=== PATIENT | female | born 1955 | race Hispanic/Latino ===

== ENCOUNTER 2018-11-21 11:24 | Inpatient (IN) | payer OTHER ==
[2018-11-21] VITALS (36 sets, daily range): BP systolic 85–165; BP diastolic 25–111
[~2018-11-21] VITALS: Ht 162.6 cm; Wt 253.7 kg
--- NOTE | 2018-11-21 11:39 | NUR ---
ARRIVAL PT ARRIVED VIA WHEELCHAIR TO ER 2 C/O FATIGUE X 6 DAYS. PT STATES THAT SHE IS DIABETIC, HAS NOT TAKEN HER INSULIN IN 3 WEEKS OR CHECKED HER BLOOD SUGAR IN 2 WEEKS. PT STATES "I USED TO HAVE INSULIN BUT I DON'T HAVE INSURANCE ANYMORE SO I JUST GET SAMPLES FROM MY DOCTOR. THEY HAVE A SAMPLE FOR ME, BUT I HAVEN'T HAD A CHANCE TO GO AND GET IT". EDP NOTIFIED OF PT ARRIVAL.
[2018-11-21] MEDS ORDERED: HUMULIN R SQ STA (12:01)
[2018-11-21] MEDS ORDERED: NS 1000ML 1,000 ML ONE ×2 (12:06→13:59)
--- NOTE | 2018-11-21 12:09 | PCM.EKG ---
[facility] Test Date: 2018-11-21 Test Time: 12:07:37 Pat Name: SONDRA BABB Department: Room: Gender: F Kitchen Steward: CATALINA : 1955 Requested By: INDRA JENSEN Order Number: [id number] Reading MD: Measurements Intervals [place] Rate: 61 P: 34 WI: 168 QRS: 24 QRSD: 88 T: -7 QT: 468 QTc: 471 Interpretive Statements Normal sinus rhythm Low voltage QRS Nonspecific T wave abnormality Prolonged QT Abnormal ECG No previous ECG available for comparison Please click the below link to view image of tracing.
--- NOTE | 2018-11-21 12:15 | ER.PDOC ---
General Chief Complaint: General Complaint Stated Complaint: FATIGUE,DIZZINESS/ NON COMPLIANCE WITH DIABETIC MEDS TRAVEL OUT OF US: No Time seen by MD: 12:33 Source: patient Exam Limitations: no limitations History of Present Illness Timing/Duration: 1 week Modifying Factors: improves with movement, improves with rest Associated Symptoms: syncope, weakness Allergies: Coded Allergies: No Known Allergies (Unverified , 01/12/17) Past Medical History Medical History: cardiac problems, diabetes, hypertension Surgical History: tonsillectomy, other Social History Smoking: non-smoker Alcohol Use: none Drug Use: none Reviewed Nursing Reviewed: Vital Signs, Abn. 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 (11/21/18 11:58) Helicobacter Pylori (11/21/18 11:58) D-Dimer (11/21/18 11:58) Xr Chest 1v (11/21/18 11:58) Ekg-Routine (11/21/18 11:58) Venous Blood Gas (11/21/18 11:58) Acetone,Serum (Ml) (11/21/18 11:58) 0.9 % Sodium Chloride (Ns 1000ml) (11/21/18 12:30) Insulin Regular, Human (Humulin R) (11/21/18 12:30) Insulin Regular, Human (Humulin R) (11/21/18 12:01) 0.9 % Sodium Chloride (Ns 1000ml) (11/21/18 12:06) Insulin Regular, Human (Humulin R) (11/21/18 12:23) Insulin Regular, Human (Humulin R) (11/21/18 12:25) 0.9 % Sodium Chloride (Ns 1000ml) (11/21/18 13:59) Insulin Regular, Human (Humulin R) (11/21/18 13:59) Insulin Regular, Human (Humulin R) (11/21/18 14:01) Glucose (11/21/18 14:12) Urinalysis (11/21/18 14:48) Vital Signs Date Time Temp Pulse Resp B/P (MAP) Pulse Ox O2 Delivery O2 Flow Rate FiO2 11/21/18 12:00 97.9 64 17 128/65 (86) 97 Room Air 97.9 11/21/18 11:54 97.9 64 17 97.9 11/21/18 11:54 97.9 64 17 97 Room Air 97.9 Administered Medications Medications (Trade) Dose Ordered Sig/Shannon Route PRN Reason Start Time Stop Time Status Last Admin Dose Admin Insulin Human Regular (Humulin R) 6 unit OT ONCE IV 11/21/18 12:30 11/21/18 12:31 DC 11/21/18 12:30 6 UNIT Insulin Human Regular (Humulin R) 10 unit OT STAT SQ 11/21/18 12:01 11/21/18 12:03 DC 11/21/18 12:30 10 UNIT Sodium Chloride 1,000 ml @ 0 mls/hr Q0M ONCE IV 11/21/18 12:30 11/21/18 12:31 DC 11/21/18 12:23 1,000 MLS/HR Laboratory Tests Test 11/21/18 12:15 11/21/18 14:13 White Blood Count 13.1 10^3/uL (4.5-11.0) H Red Blood Count 4.29 10^6/uL (4.00-5.20) Hemoglobin 12.4 g/dL (12.0-15.0) Hematocrit 39.5 % (36.0-46.0) Mean Corpuscular Volume 92.1 fL (78-100) Mean Corpuscular Hemoglobin 28.9 pg (26-34) Mean Corpuscular Hemoglobin Concent 31.4 g/dL (33-37) L Red Cell Distribution Width 14.7 % (11.5-14.5) H Platelet Count 298 10^3/uL (150-400) Mean Platelet Volume 10.8 fL (7.8-11.0) Neutrophils (%) (Auto) 86.6 % (41.0-85.0) H Lymphocytes (%) (Auto) 9.3 % (24.0-44.0) L Monocytes (%) (Auto) 3.5 % (5.0-12.0) L Neutrophils # (Auto) 11.3 10^3/uL (1.8-7.7) H Lymphocytes # (Auto) 1.2 10^3/uL (1.0-4.8) Monocytes # (Auto) 0.5 10^3/uL (0.3-0.8) Absolute Immature Granulocyte (auto 0.02 10^3 u/L (0-2) Eosinophils % 0.2 % (0.0-5.0) Basophils % 0.2 % (0.0-0.2) Basophils # 0.0 10^3/uL (0.0-0.1) Eosinophil Count 0.0 10^3/uL (0.0-0.2) Prothrombin Time 9.7 SEC (9.8-11.9) L Prothrombin Time INR (Non-Therap) 1.0 PTT 23.7 SEC (24.67-30.72) D-Dimer 0.74 mg/L (0.19-0.49) *H Sodium Level 120 mmol/L (132-145) #*L Potassium Level 5.1 mmol/L (3.6-5.2) Chloride Level 83.0 mmol/L (96-109) *L Carbon Dioxide Level 25.2 mmol/L (20.0-32) Anion Gap 16.9 Blood Urea Nitrogen 46 mg/dL (7-18) H Creatinine 2.13 mg/dL (0.59-1.40) *H Estimated GFR () 28.3 (>/=60) BUN/Creatinine Ratio 21.0 Glucose Level 1151 mg/dL (70-110) *H 881 mg/dL (70-110) *H Calcium Level 9.8 mg/dL (8.4-10.5) Total Bilirubin 0.4 mg/dL (0.2-1.0) Aspartate Amino Transferase (AST) 15 U/L (0-35) Alanine Aminotransferase (ALT) 21 U/L (12-78) Alkaline Phosphatase 274 U/L (50-136) H Total Creatine Kinase 157 U/L (26-192) Troponin I 0.13 ng/mL (0.00-0.05) H Pro-B-Type Natriuretic Peptide 155 pg/mL (0-125) H Total Protein 8.4 g/dL (6.4-8.2) H Albumin 3.6 g/dL (3.4-5.0) Globulin 4.8 Acetone, Semi-Quantitative NEGATIVE Percent Immature Gran (Cell Imm) 0.20 % (0.00-0.50) Helicobacter pylori Screen NEGATIVE (NEGATIVE) EKG/XRAY/CT/US EKG: NSR, nonspecific ST T wave chg Consult/PCP Time Consult/PCP Called: 15:11 Consult/PCP: DR HUTSON Departure Time of Disposition: 15:33 Disposition: 09 ADMITTED INPATIENT Impression: Primary Impression: Hyperosmolality syndrome Condition: Improved Referrals: PEDRO EDMOND BRAZER FURNACE (PCP) PRIMARY CARE PROVIDER Duration or Time Spent with Pa: 2 HRS Critical Care Note Total Time (mins): 30 INDRA JENSEN MD Nov 21, 2018 12:15
[2018-11-21 12:21] LABS: BASOPHIL % 0.2 % (0.0-0.2); EOSINOPHIL % 0.2 % (0.0-5.0); HEMOGLOBIN 12.4 g/dL (12.0-15.0); LYMPHOCYTES # 1.2 10^3/uL (1.0-4.8); LYMPHOCYTES % 9.3 % (24.0-44.0); MEAN CELL HGB 28.9 pg (26-34); MEAN CELL HGB CONCENTRATION 31.4 g/dL (33-37); MEAN CORP VOLUME 92.1 fL (78-100); MEAN PLATELET VOLUME 10.8 fL (7.8-11.0); MONOCYTES # 0.5 10^3/uL (0.3-0.8); MONOCYTES % 3.5 % (5.0-12.0); NEUTROPHIL # 11.3 10^3/uL (1.8-7.7); NEUTROPHILS % 86.6 % (41.0-85.0); RED CELL DISTRIBUTION WIDTH 14.7 % (11.5-14.5); WHITE BLOOD CELL 13.1 10^3/uL (4.5-11.0)
[2018-11-21] MEDS ORDERED: HUMULIN R ONE ×4 (12:23→14:01)
[2018-11-21] MEDS ORDERED: NS 1000ML 1,000 ML IV ONE ×2 (12:30→15:30)
[2018-11-21] MEDS ORDERED: HUMULIN R IV ONE (12:30)
[2018-11-21 12:45] LABS: CALCIUM 9.8 mg/dL (8.4-10.5); CARBON DIOXIDE 25.2 mmol/L (20.0-32)
--- NOTE | 2018-11-21 12:45 | DIREP ---
PROCEDURE:CHEST 1 VIEW COMPARISON:None. INDICATIONS:HYPERGLYCEMIA, WEAK, DYSPNEA FINDINGS: LUNGS/PLEURA:No significant pulmonary parenchymal abnormalities. No effusions. A shallow inspiration is noted. VASCULATURE:Normal. Unremarkable pulmonary vasculature. CARDIAC:Normal. No cardiac silhouette abnormality or cardiomegaly. MEDIASTINUM:Normal. No visible mass or adenopathy. BONES:Normal. No fracture or visible bony lesion. OTHER:Multiple monitor leads overlie the chest. CONCLUSION:Shallow inspiration without acute cardiopulmonary disease. Dictated by: Minor Rashid M.D. on 11/21/2018 at 12:44 PM
[2018-11-21] MEDS: HUMULIN R IV ONE ×2 (14:06→15:38)
[2018-11-21] MEDS ORDERED: HUMULIN R IV STA (15:15)
[2018-11-21] MEDS ORDERED: NS 100ML 100 ML IV ONE ×2 (15:23→21:00)
[2018-11-21] MEDS ORDERED: NS 1000ML/KCL 20MEQ 1,000 ML IV SCH (15:30)
[2018-11-21] MEDS ORDERED: HUMULIN R IV SCH (15:30)
[2018-11-21] MEDS ORDERED: HUMULIN R SQ ONE (15:30)
[2018-11-21] MEDS ORDERED: DUONEB 0.5 MG-3 MG/3 ML SOLN IH ONE (15:59)
[2018-11-21] MEDS ORDERED: DECADRON ONE (15:59)
--- NOTE | 2018-11-21 16:22 | NUR ---
ICU PT TO ICU VIA STRETCHER WITH TRANSPORT MONITOR. REPORT TO KALIA LOPEZ.
[2018-11-21 16:56] LABS: BILIRUBIN,URINE NEGATIVE (NEGATIVE); UROBILINOGEN,URINE NORMAL (NEGATIVE)
[2018-11-21 17:26] LABS: APPEARANCE,URINE CLOUDY (CLEAR); UA COLOR YELLOW (YELLOW)
[2018-11-21 17:27] LABS: YEAST,URINE FEW
--- NOTE | 2018-11-21 17:30 | NUR ---
DR. HUTSON AT BEDSIDE NEW ORDERS GIVEN: USE COLUMN 3 OF ICU INSULIN DRIP ORDERS. START PATIENT ON NS @ 125ML/HR. ONCE BLOOD SUGAR IS LESS THAN 250, ADD D5W. IF POTASSIUM DROPS BELOW 3.5 GIVE 40KCL, IF BELOW 3.0 GIVE 60KCL. ORDER Q4 BMP X4. START PATIENT ON LOVENOX 40MG, PROTONIX, 40MG, ROCEPHINE 1GM, DIET 1800 ADA, CHEST XRAY IN THE AM, SWAB PATIENT FOR INFLUENZA A&B. ORDER PLAIN FILM ON R RADIUS AND ULNA. RBVO.
[2018-11-21] MEDS ORDERED: NS 1000ML 1,000 ML IV SCH (18:00)
[2018-11-21] MEDS ORDERED: PIOG30TA27 PO (18:18)
[2018-11-21] MEDS ORDERED: GLIM2TAB2 PO (18:18)
[2018-11-21] MEDS ORDERED: PRAV10TA2 PO (18:18)
[2018-11-21] MEDS ORDERED: LISI-410 PO (18:21)
[2018-11-21 18:38] LABS: CALCIUM 9.5 mg/dL (8.4-10.5)
[2018-11-21] MEDS ORDERED: MELO15TA24 PO (18:42)
[2018-11-21] MEDS ORDERED: FURO-81 PO (18:42)
[2018-11-21] MEDS ORDERED: ALLO300T PO (18:42)
[2018-11-21] MEDS ORDERED: METO100T7 PO (18:42)
[2018-11-21] MEDS ORDERED: ASPI-655 PO (18:42)
[2018-11-21] MEDS ORDERED: ISOS30TA4 PO (18:42)
[2018-11-21] MEDS ORDERED: HYDR25TA9 PO (18:42)
[2018-11-21] MEDS ORDERED: GABA300C10 PO (18:42)
--- NOTE | 2018-11-21 18:48 | DIREP ---
PROCEDURE:XRAY FOREARM 2 VWS-RT COMPARISON:None. INDICATIONS:SWELLING AND MASS FINDINGS: BONES:Normal. JOINTS:Normal. SOFT TISSUES:Normal. OTHER:Intravenous catheter is present superficially. CONCLUSION:No abnormalities in the right forearm. Dictated by: Fortino Eubanks M.D. on 11/21/2018 at 06:47 PM
[2018-11-21] MEDS ORDERED: ROCEPHIN 1,000 MG in NS 100ML 100 ML IV SCH (20:00)
[2018-11-21] MEDS ORDERED: ROCEPHIN ONE (21:00)
[2018-11-21] MEDS: PROTONIX PO SCH (21:10)
[2018-11-21] MEDS: NEURONTIN PO SCH (21:11)
[2018-11-21] MEDS: LOVENOX SQ SCH (21:12)
[2018-11-21] MEDS ORDERED: D5W 1000ML 1,000 ML ONE (22:07)
[2018-11-21 22:20] LABS: CALCIUM 9.7 mg/dL (8.4-10.5); CARBON DIOXIDE 27.4 mmol/L (20.0-32)
[2018-11-21] MEDS ORDERED: D5W 1000ML 1,000 ML IV SCH (23:00)
[2018-11-21] MEDS ORDERED: D5NS 1,000 ML IV SCH (23:00)
[2018-11-22] VITALS (53 sets, daily range): BP systolic 74–158; BP diastolic 33–87
[2018-11-22 03:17] LABS: CARBON DIOXIDE 28.2 mmol/L (20.0-32)
[2018-11-22] MEDS ORDERED: NS 100ML 100 ML IV ONE ×2 (05:20→09:14)
[2018-11-22] MEDS ORDERED: NOVOLIN R IV SCH (06:00)
[2018-11-22] MEDS ORDERED: NS IV SCH (06:00)
[2018-11-22 06:16] LABS: CALCIUM 8.9 mg/dL (8.4-10.5); CARBON DIOXIDE 26.4 mmol/L (20.0-32)
[2018-11-22] MEDS ORDERED: D5NS 1,000 ML ONE (06:54)
--- NOTE | 2018-11-22 07:00 | NUR ---
DR. HUTSON AT BEDSIDE NEW ORDERS GIVEN: GIVE PATIENT 30UNITS OF LANTUS AND STOP INSULIN DRIP. CHANGE ACCU CHECKS TO ACHS. ADD 20KCL TO FLUIDS. RBVO.
[2018-11-22] MEDS ORDERED: D5NS 1000ML/KCL 20MEQ 1,000 ML ONE (07:01)
--- NOTE | 2018-11-22 07:20 | NUR ---
INSULIN DRIP STOPPED PER DR. HUTSON. FLUIDS CHANGED FROM D5NS WITH 20KCL TO NS WITH KCL.
[2018-11-22] MEDS ORDERED: D5NS 1000ML/KCL 20MEQ 1,000 ML IV SCH (07:30)
[2018-11-22] MEDS ORDERED: LANTUS SQ ONE (07:30)
[2018-11-22] MEDS: NS 1000ML/KCL 20MEQ 1,000 ML IV SCH ×2 (07:43→17:13)
--- NOTE | 2018-11-22 08:40 | PRM.PN ---
Subjective Subjective Date: Nov 22, 2018 Time: 08:32 Subjective Feeling a little better today. Didn't get great sleep overnight. Nausea much improved, feels hungry now. Complains of weakness and difficulty getting up. No other overnight events. VTE VTE Risk Total Score: >5 VTE Risk Score VTE Risk: Score 0-1 = Low Risk (Aggressive mobilization; early ambulation; no VTE prophylaxis required) Score 2: Moderate Risk (Intermittent/Pneumatic Compression Device OR Lovenox/Heparin/Coumadin) Score 3-4: High Risk (Intermittent/Pneumatic Compression Device AND Lovenox/Heparin/Coumadin) Score > or =5: Highest Risk (Intermittent/Pneumatic Compression Device AND Lovenox/Heparin/Coumadin) Review of Systems Constitutional: Weakness; No: Fever, Chills, Sweats, Malaise, Other Respiratory: No: Cough, Dry, Shortness of breath, SOB with excertion, Wheezing , Hemoptysis, Pleuritic Pain, Sputum, Wheezing, Other Cardiovascular: No: Chest Pain, Palpitations, Orthopnea, Paroxysmal Noc. Dyspnea, Edema, Lt Headedness, Other Gastrointestinal: No: Nausea, Vomiting, Abdominal Pain, Diarrhea, Constipation , Melena, Hematochezia, Other Genitourinary: No Dysuria, No Frequency, No Incontinence, No Hematuria, No Retention, No Other Musculoskeletal: No: other, neck pain, shoulder pain, arm pain, back pain, hand pain, leg pain, foot pain Neurological: No: Weakness, Numbness, Incoordination, Change in speech, Confusion, Seizures, Other Allergies: Coded Allergies: No Known Allergies (Unverified , 01/12/17) Scheduled Aspirin (Aspirin Ec), 1 TAB PO DAILY, (Reported) Furosemide (Lasix), 1 TAB PO DAILY, (Reported) Gabapentin (Gabapentin), 1 CAP PO BID, (Reported) Glimepiride (Glimepiride), 1 TAB PO DAILY, (Reported) Hydrochlorothiazide (Hydrochlorothiazide), 1 TAB PO DAILY, (Reported) Isosorbide Mononitrate (Isosorbide Mononitrate Er), 1 TAB PO DAILY, (Reported) Lisinopril (Lisinopril), 1 TAB PO BID, (Reported) Meloxicam (Meloxicam), 1 TAB PO DAILY, (Reported) Metoprolol Tartrate (Lopresser 100MG), 1 TAB PO BID, (Reported) Pravastatin Sodium (Pravastatin Sodium), 1 TAB PO DAILY, (Reported) Discontinued Medications Allopurinol (Allopurinol), 1 TAB PO DAILY, (Reported) Discontinued Reason: HOLD Pioglitazone Hcl (Actos), 30 MG PO DAILY24, (Reported) Discontinued Reason: HOLD Objective Vitals and I/O Vital Sign - Last 24 Hours 11/21/18 11/21/18 11/21/18 11/21/18 11:54 11:54 12:00 12:30 Temp 97.9 97.9 97.9 97.9 97.9 97.9 Pulse 64 64 64 63 Resp 17 17 17 B/P (MAP) 128/65 (86) 116/46 (69) Pulse Ox 97 97 94 O2 Delivery Room Air Room Air 11/21/18 11/21/18 11/21/18 11/21/18 13:00 13:30 14:00 14:30 Pulse 61 63 65 64 B/P (MAP) 116/53 (74) 107/58 (74) 135/76 (95) 111/54 (73) Pulse Ox 92 100 96 98 11/21/18 11/21/18 11/21/18 11/21/18 15:00 15:30 16:00 17:13 Temp 97.9 97.9 Pulse 61 63 64 67 B/P (MAP) 120/46 (70) 109/63 (78) 107/50 (69) 106/58 (74) Pulse Ox 96 98 98 99 11/21/18 11/21/18 11/21/18 11/21/18 17:15 17:28 17:43 17:58 Pulse 65 61 64 Resp 21 16 29 B/P (MAP) 113/55 (74) 104/53 (70) 120/56 (77) Pulse Ox 99 O2 Delivery Room Air 11/21/18 11/21/18 11/21/18 11/21/18 18:13 18:28 18:47 19:00 Pulse 64 63 68 72 Resp 21 11 15 18 B/P (MAP) 104/58 (73) 85/35 (52) 136/52 (80) Pulse Ox 94 97 11/21/18 11/21/18 11/21/18 11/21/18 19:02 19:15 19:17 19:32 Pulse 70 68 72 Resp 43 23 15 B/P (MAP) 106/42 (63) 91/42 (58) 120/62 (81) Pulse Ox 97 O2 Delivery Room Air 11/21/18 11/21/18 11/21/18 11/21/18 19:47 20:00 20:03 20:18 Pulse 70 70 67 67 Resp 14 13 14 B/P (MAP) 95/54 (68) 105/48 (67) 105/53 (70) Pulse Ox 98 97 94 11/21/18 11/21/18 11/21/18 11/21/18 20:32 20:48 21:00 21:02 Pulse 70 69 67 66 Resp 18 16 14 14 B/P (MAP) 121/62 (81) 93/32 (52) 103/58 (73) Pulse Ox 94 93 92 11/21/18 11/21/18 11/21/18 11/21/18 21:18 21:32 21:47 22:00 Pulse 70 69 76 69 Resp 18 44 23 16 B/P (MAP) 165/111 (129) 96/52 (67) 119/48 (71) Pulse Ox 95 93 96 11/21/18 11/21/18 11/21/18 11/21/18 22:02 22:17 22:32 22:48 Pulse 69 69 67 71 Resp 17 13 19 B/P (MAP) 87/25 (45) 121/50 (73) 113/63 (80) 118/78 (91) Pulse Ox 94 97 11/21/18 11/21/18 11/21/18 11/21/18 23:00 23:02 23:17 23:32 Pulse 66 67 66 65 Resp 14 14 15 14 B/P (MAP) 119/67 (84) 108/59 (75) 102/57 (72) Pulse Ox 96 93 11/21/18 11/22/18 11/22/18 11/22/18 23:47 00:00 00:00 00:02 Pulse 69 66 66 Resp 21 14 15 B/P (MAP) 118/63 (81) 112/62 (79) Pulse Ox 92 92 O2 Delivery Room Air 11/22/18 11/22/18 11/22/18 11/22/18 00:17 00:32 00:48 01:00 Pulse 68 71 67 70 Resp 15 16 14 14 B/P (MAP) 90/41 (57) 87/44 (58) 128/67 (87) Pulse Ox 91 91 93 93 11/22/18/01/05/01/0511/22/18 01:02 01:17 01:32 01:47 Pulse 70 66 67 65 Resp 14 14 15 14 B/P (MAP) 114/59 (77) 100/61 (74) 110/60 (77) 88/47 (61) Pulse Ox 92 11/22/18/01/05/01/05/01/05 02:00 02:02 02:17 02:33 Pulse 66 67 70 64 Resp 16 15 15 13 B/P (MAP) 80/41 (54) 95/52 (66) 80/46 (57) Pulse Ox 95 92 93 94 11/22/18/01/05/01/0511/22/18 02:47 03:00 03:02 03:17 Pulse 64 66 67 70 Resp 14 14 14 14 B/P (MAP) 94/49 (64) 87/52 (64) 115/45 (68) Pulse Ox 95 93 93 91 11/22/18/01/05/01/0511/22/18 03:32 03:47 04:00 04:00 Pulse 66 63 66 Resp 11 13 15 B/P (MAP) 101/51 (68) 74/44 (54) Pulse Ox 88 O2 Delivery Room Air 11/22/18 11/22/18 11/22/18 11/22/18 04:02 04:17 04:32 04:47 Pulse 66 68 66 64 Resp 15 15 14 14 B/P (MAP) 99/36 (57) 88/46 (60) 83/42 (56) 91/44 (60) Pulse Ox 91 90 96 93 11/22/18 11/22/18 11/22/18 11/22/18 05:00 05:02 05:17 05:32 Pulse 64 67 65 69 Resp 13 14 14 13 B/P (MAP) 107/47 (67) 95/46 (62) 100/52 (68) Pulse Ox 94 92 91 11/22/18 11/22/18 11/22/18 11/22/18 05:47 06:00 06:02 06:17 Pulse 66 68 65 65 Resp 14 12 14 13 B/P (MAP) 96/53 (67) 95/35 (55) 79/49 (59) Pulse Ox 84 94 94 11/22/18 11/22/18 11/22/18 11/22/18 06:32 06:47 07:02 07:17 Pulse 65 67 66 67 Resp 13 13 15 14 B/P (MAP) 103/43 (63) 82/33 (49) 93/38 (56) 84/37 (53) Pulse Ox 96 95 11/22/18 11/22/18 11/22/18 07:32 07:47 08:09 Temp 97.8 97.8 Pulse 65 67 Resp 13 66 B/P (MAP) 91/59 (70) 104/56 (72) O2 Delivery Room Air Intake and Output 11/21/18 11/21/18 11/22/18 15:00 23:00 07:00 Intake Total 1972 ml Output Total 250 ml 350 ml Balance -250 ml 1622 ml General: Alert, Oriented X3, Cooperative, No acute distress, Other (Morbid obesity.) HEENT: Atraumatic, PERRLA Neck: Supple, No JVD Lungs: Clear to auscultation Heart: Regular rate, Normal S1, Normal S2, No murmurs Abdomen: Normal bowel sounds, Soft, No tenderness, No masses Extremities: No clubbing, No cyanosis, No edema, Normal pulses, No tenderness/ swelling Skin: No rashes, No breakdown, No significant lesion Neuro: Normal gait, Normal speech, Strength at 5/5 X4 ext, Normal tone, Sensation intact Psych/Mental Status: Mental status NL, Mood NL All Results(Lab/Rad) Laboratory Tests Test 11/21/18 12:15 11/21/18 14:13 11/21/18 16:40 11/21/18 18:18 White Blood Count 13.1 10^3/uL Red Blood Count 4.29 10^6/uL Hemoglobin 12.4 g/dL Hematocrit 39.5 % Mean Corpuscular Volume 92.1 fL Mean Corpuscular Hemoglobin 28.9 pg Mean Corpuscular Hemoglobin Concent 31.4 g/dL Red Cell Distribution Width 14.7 % Platelet Count 298 10^3/uL Mean Platelet Volume 10.8 fL Neutrophils (%) (Auto) 86.6 % Lymphocytes (%) (Auto) 9.3 % Monocytes (%) (Auto) 3.5 % Neutrophils # (Auto) 11.3 10^3/uL Lymphocytes # (Auto) 1.2 10^3/uL Monocytes # (Auto) 0.5 10^3/uL Absolute Immature Granulocyte (auto 0.02 10^3 u/L Eosinophils % 0.2 % Basophils % 0.2 % Basophils # 0.0 10^3/uL Eosinophil Count 0.0 10^3/uL Prothrombin Time 9.7 SEC Prothrombin Time INR (Non-Therap) 1.0 Activated Partial Thromboplast Time 23.7 SEC D-Dimer 0.74 mg/L Sodium Level 120 mmol/L 135 mmol/L Potassium Level 5.1 mmol/L 3.7 mmol/L Chloride Level 83.0 mmol/L 95.0 mmol/L Carbon Dioxide Level 25.2 mmol/L 27.0 mmol/L Anion Gap 16.9 16.7 Blood Urea Nitrogen 46 mg/dL 44 mg/dL Creatinine 2.13 mg/dL 1.88 mg/dL Estimated GFR () 28.3 32.7 BUN/Creatinine Ratio 21.0 23.0 Glucose Level 1151 mg/dL 881 mg/dL 465 mg/dL Calcium Level 9.8 mg/dL 9.5 mg/dL Total Bilirubin 0.4 mg/dL Aspartate Amino Transf (AST/SGOT) 15 U/L Alanine Aminotransferase (ALT/SGPT) 21 U/L Alkaline Phosphatase 274 U/L Total Creatine Kinase 157 U/L Troponin I 0.13 ng/mL Pro-B-Type Natriuretic Peptide 155 pg/mL Total Protein 8.4 g/dL Albumin 3.6 g/dL Globulin 4.8 Acetone, Semi-Quantitative NEGATIVE Percent Immature Gran (Cell Imm) 0.20 % Helicobacter pylori Screen NEGATIVE Urine Collection Type VOID Urine Color YELLOW Urine Appearance CLOUDY Urine Bilirubin NEGATIVE MG/DL Urine Ketones NEGATIVE Urine Specific [address] 1.010 Urine pH 5 Urine Protein NEGATIVE Urine Urobilinogen NORMAL Urine Nitrate NEGATIVE Urine Leukocyte Esterase 500/uL 2+ Urine Blood 50 2+ Urine RBC 5-10 RBC/HPF Urine WBC TNTC WBC/HPF Urine Squamous Epithelial Cells MANY #/HPF Urine Amorphous Sediment SMALL Urine Bacteria MANY Urine Yeast FEW Urine Glucose 1000 Test 11/21/18 19:35 11/21/18 22:05 11/22/18 03:00 11/22/18 05:55 Influenza Type A Antigen NEGATIVE Influenza B Immunofluorescence NEGATIVE Sodium Level 136 mmol/L 134 mmol/L 131 mmol/L Potassium Level 3.3 mmol/L 3.4 mmol/L 3.4 mmol/L Chloride Level 99.0 mmol/L 97.0 mmol/L 97.0 mmol/L Carbon Dioxide Level 27.4 mmol/L 28.2 mmol/L 26.4 mmol/L Glucose Level 193 mg/dL 198 mg/dL 187 mg/dL Blood Urea Nitrogen 44 mg/dL 44 mg/dL 46 mg/dL Creatinine 1.84 mg/dL 1.88 mg/dL 1.91 mg/dL Calcium Level 9.7 mg/dL 9.0 mg/dL 8.9 mg/dL Anion Gap 12.9 12.2 11.0 Estimated GFR () 33.5 32.7 32.1 BUN/Creatinine Ratio 23.0 23.0 24.0 Current Medications Medications (Trade) Dose Ordered Sig/Shannon Route PRN Reason Start Time Stop Time Status Last Admin Dose Admin Sodium Chloride 1,000 ml @ 0 mls/hr Q0M ONCE IV 11/21/18 12:30 11/21/18 12:31 DC 11/21/18 12:23 Insulin Human Regular (Humulin R) 6 unit OT ONCE IV 11/21/18 12:30 11/21/18 12:31 DC 11/21/18 12:30 Insulin Human Regular (Humulin R) 10 unit OT STAT SQ 11/21/18 12:01 11/21/18 12:03 DC 11/21/18 12:30 Sodium Chloride 1,000 ml @ ud STK-MED ONCE .ROUTE 11/21/18 12:06 11/21/18 12:07 DC Insulin Human Regular (Humulin R) 1 unit STK-MED ONCE .ROUTE 11/21/18 12:23 11/21/18 12:25 DC Insulin Human Regular (Humulin R) 1 unit STK-MED ONCE .ROUTE 11/21/18 12:25 11/21/18 12:27 DC Sodium Chloride 1,000 ml @ ud STK-MED ONCE .ROUTE 11/21/18 13:59 11/21/18 14:01 DC Insulin Human Regular (Humulin R) 1 unit STK-MED ONCE .ROUTE 11/21/18 13:59 11/21/18 14:01 DC Insulin Human Regular (Humulin R) 1 unit STK-MED ONCE .ROUTE 11/21/18 14:01 11/21/18 14:03 DC Insulin Human Regular (Humulin R) 8 unit Q1HR ONCE IV 11/21/18 15:30 11/21/18 15:31 DC Potassium Chloride/Sodium Chloride 1,000 ml @ 100 mls/hr Q10H IV 11/21/18 15:30 11/21/18 15:30 DC Sodium Chloride 1,000 ml @ 0 mls/hr Q0M ONCE IV 11/21/18 15:30 11/21/18 15:58 DC 11/21/18 14:05 Insulin Human Regular (Humulin R) 6 unit STAT STAT IV 11/21/18 15:15 11/21/18 15:58 DC 11/21/18 14:05 Insulin Human Regular (Humulin R) 10 unit OT ONCE SQ 11/21/18 15:30 11/21/18 15:58 DC 11/21/18 14:08 Insulin Human Regular (Humulin R) 8 unit Q1HR IV 11/21/18 15:30 11/22/18 08:23 DC 11/21/18 15:39 Sodium Chloride 100 ml @ ud STK-MED ONCE IV 11/21/18 15:23 11/21/18 15:26 DC Albuterol/ Ipratropium (Duoneb 0.5 Mg-3 Mg/3 ml Soln) 3 ml STK-MED ONCE IH 11/21/18 15:59 11/21/18 16:02 DC Dexamethasone Sodium Phosphate (Decadron) 4 mg STK-MED ONCE .ROUTE 11/21/18 15:59 11/21/18 16:02 DC Enoxaparin Sodium (Lovenox) 40 mg HS SQ 11/21/18 21:00 12/21/18 20:59 11/21/18 21:12 Pantoprazole Sodium (Protonix) 40 mg DAILY PO 11/21/18 21:00 12/21/18 20:59 11/21/18 21:10 Ceftriaxone Sodium 1000 mg/ Sodium Chloride 100 ml @ 100 mls/hr Q24HRS IV 11/21/18 20:00 11/22/18 07:40 DC 11/21/18 21:10 Sodium Chloride 1,000 ml @ 125 mls/hr Q8H IV 11/21/18 18:00 11/21/18 22:50 DC 11/21/18 18:03 Aspirin (Aspirin Ec) 81 mg DAILY PO 11/22/18 09:00 12/22/18 08:59 Gabapentin (Neurontin) 300 mg BID PO 11/21/18 21:00 12/21/18 20:59 11/21/18 21:11 Isosorbide Mononitrate (Imdur) 30 mg DAILY PO 11/22/18 09:00 12/22/18 08:59 Metoprolol Tartrate (Lopressor) 100 mg BID PO 11/22/18 09:00 12/22/18 08:59 Sodium Chloride 100 ml @ ud STK-MED ONCE IV 11/21/18 21:00 11/21/18 21:01 DC Ceftriaxone Sodium (Rocephin) 1,000 mg STK-MED ONCE .ROUTE 11/21/18 21:00 11/21/18 21:02 DC Dextrose 1,000 ml @ ud STK-MED ONCE .ROUTE 11/21/18 22:07 11/21/18 22:09 DC Dextrose/Sodium Chloride 1,000 ml @ 125 mls/hr Q8H IV 11/21/18 23:00 11/21/18 23:00 DC Dextrose 1,000 ml @ 125 mls/hr Q8H IV 11/21/18 23:00 11/22/18 07:08 DC 11/21/18 22:56 Sodium Chloride 100 ml @ ud STK-MED ONCE IV 11/22/18 05:20 11/22/18 05:22 DC Insulin Human Regular 100 unit/ Sodium Chloride 101 ml @ 0 mls/hr Q0M IV 11/22/18 06:00 12/22/18 05:59 Dextrose/Sodium Chloride 1,000 ml @ ud STK-MED ONCE .ROUTE 11/22/18 06:54 11/22/18 06:56 DC Potassium Chloride/Dextrose/ Sod Cl 1,000 ml @ ud STK-MED ONCE .ROUTE 11/22/18 07:01 11/22/18 07:03 DC Potassium Chloride/Dextrose/ Sod Cl 1,000 ml @ 125 mls/hr Q8H IV 11/22/18 07:30 11/22/18 07:40 DC 11/22/18 07:11 Insulin Glargine (Lantus) 30 unit OT ONCE SQ 11/22/18 07:30 11/22/18 08:24 DC 11/22/18 07:35 Ceftriaxone Sodium 1000 mg/ Sodium Chloride 100 ml @ 100 mls/hr BID IV 11/22/18 09:00 12/21/18 19:59 Potassium Chloride/Sodium Chloride 1,000 ml @ 100 mls/hr Q10H IV 11/22/18 08:00 12/22/18 07:59 11/22/18 07:43 Course Sepsis Screening Results: Posi: NEGATIVE Sepsis Qualifier/Stage: NO DEFINITE RISK Duration or Total Time Spent w: 2 HRS Vitals & review Data Vital Sign - Last 24 Hours 11/21/18 11/21/18 11/21/18 11/21/18 11:54 11:54 12:00 12:30 Temp 97.9 97.9 97.9 97.9 97.9 97.9 Pulse 64 64 64 63 Resp 17 17 17 B/P (MAP) 128/65 (86) 116/46 (69) Pulse Ox 97 97 94 O2 Delivery Room Air Room Air 11/21/18 11/21/18 11/21/18 11/21/18 13:00 13:30 14:00 14:30 Pulse 61 63 65 64 B/P (MAP) 116/53 (74) 107/58 (74) 135/76 (95) 111/54 (73) Pulse Ox 92 100 96 98 11/21/18 11/21/18 11/21/18 11/21/18 15:00 15:30 16:00 17:13 Temp 97.9 97.9 Pulse 61 63 64 67 B/P (MAP) 120/46 (70) 109/63 (78) 107/50 (69) 106/58 (74) Pulse Ox 96 98 98 99 11/21/18 11/21/18 11/21/18 11/21/18 17:15 17:28 17:43 17:58 Pulse 65 61 64 Resp 21 16 29 B/P (MAP) 113/55 (74) 104/53 (70) 120/56 (77) Pulse Ox 99 O2 Delivery Room Air 11/21/18 11/21/18 11/21/18 11/21/18 18:13 18:28 18:47 19:00 Pulse 64 63 68 72 Resp 21 11 15 18 B/P (MAP) 104/58 (73) 85/35 (52) 136/52 (80) Pulse Ox 94 97 11/21/18 11/21/18 11/21/18 11/21/18 19:02 19:15 19:17 19:32 Pulse 70 68 72 Resp 43 23 15 B/P (MAP) 106/42 (63) 91/42 (58) 120/62 (81) Pulse Ox 97 O2 Delivery Room Air 11/21/18 11/21/18 11/21/18 11/21/18 19:47 20:00 20:03 20:18 Pulse 70 70 67 67 Resp 14 13 14 B/P (MAP) 95/54 (68) 105/48 (67) 105/53 (70) Pulse Ox 98 97 94 11/21/18 11/21/18 11/21/18 11/21/18 20:32 20:48 21:00 21:02 Pulse 70 69 67 66 Resp 18 16 14 14 B/P (MAP) 121/62 (81) 93/32 (52) 103/58 (73) Pulse Ox 94 93 92 11/21/18 11/21/18 11/21/18 11/21/18 21:18 21:32 21:47 22:00 Pulse 70 69 76 69 Resp 18 44 23 16 B/P (MAP) 165/111 (129) 96/52 (67) 119/48 (71) Pulse Ox 95 93 96 11/21/18 11/21/18 11/21/18 11/21/18 22:02 22:17 22:32 22:48 Pulse 69 69 67 71 Resp 17 13 19 B/P (MAP) 87/25 (45) 121/50 (73) 113/63 (80) 118/78 (91) Pulse Ox 94 97 11/21/18 11/21/18 11/21/18 11/21/18 23:00 23:02 23:17 23:32 Pulse 66 67 66 65 Resp 14 14 15 14 B/P (MAP) 119/67 (84) 108/59 (75) 102/57 (72) Pulse Ox 96 93 11/21/18 11/22/18 11/22/18 11/22/18 23:47 00:00 00:00 00:02 Pulse 69 66 66 Resp 21 14 15 B/P (MAP) 118/63 (81) 112/62 (79) Pulse Ox 92 92 O2 Delivery Room Air 11/22/18 11/22/18 11/22/18 11/22/18 00:17 00:32 00:48 01:00 Pulse 68 71 67 70 Resp 15 16 14 14 B/P (MAP) 90/41 (57) 87/44 (58) 128/67 (87) Pulse Ox 91 91 93 93 11/22/18 11/22/18 11/22/18 11/22/18 01:02 01:17 01:32 01:47 Pulse 70 66 67 65 Resp 14 14 15 14 B/P (MAP) 114/59 (77) 100/61 (74) 110/60 (77) 88/47 (61) Pulse Ox 92 11/22/18 11/22/18 11/22/18 11/22/18 02:00 02:02 02:17 02:33 Pulse 66 67 70 64 Resp 16 15 15 13 B/P (MAP) 80/41 (54) 95/52 (66) 80/46 (57) Pulse Ox 95 92 93 94 11/22/18 11/22/18 11/22/18 11/22/18 02:47 03:00 03:02 03:17 Pulse 64 66 67 70 Resp 14 14 14 14 B/P (MAP) 94/49 (64) 87/52 (64) 115/45 (68) Pulse Ox 95 93 93 91 11/22/18 11/22/18 11/22/18 11/22/18 03:32 03:47 04:00 04:00 Pulse 66 63 66 Resp 11 13 15 B/P (MAP) 101/51 (68) 74/44 (54) Pulse Ox 88 O2 Delivery Room Air 11/22/18 11/22/18 11/22/18 11/22/18 04:02 04:17 04:32 04:47 Pulse 66 68 66 64 Resp 15 15 14 14 B/P (MAP) 99/36 (57) 88/46 (60) 83/42 (56) 91/44 (60) Pulse Ox 91 90 96 93 11/22/18 11/22/18 11/22/18 11/22/18 05:00 05:02 05:17 05:32 Pulse 64 67 65 69 Resp 13 14 14 13 B/P (MAP) 107/47 (67) 95/46 (62) 100/52 (68) Pulse Ox 94 92 91 11/22/18 11/22/18 11/22/18 11/22/18 05:47 06:00 06:02 06:17 Pulse 66 68 65 65 Resp 14 12 14 13 B/P (MAP) 96/53 (67) 95/35 (55) 79/49 (59) Pulse Ox 84 94 94 11/22/18 11/22/18 11/22/18 11/22/18 06:32 06:47 07:02 07:17 Pulse 65 67 66 67 Resp 13 13 15 14 B/P (MAP) 103/43 (63) 82/33 (49) 93/38 (56) 84/37 (53) Pulse Ox 96 95 11/22/18 11/22/18 11/22/18 07:32 07:47 08:09 Temp 97.8 97.8 Pulse 65 67 Resp 13 66 B/P (MAP) 91/59 (70) 104/56 (72) O2 Delivery Room Air Intake and Output 11/21/18 11/21/18 11/22/18 15:00 23:00 07:00 Intake Total 1972 ml Output Total 250 ml 350 ml Balance -250 ml 1622 ml Laboratory Tests Test 11/21/18 12:15 11/21/18 14:13 11/21/18 16:40 11/21/18 18:18 White Blood Count 13.1 10^3/uL Red Blood Count 4.29 10^6/uL Hemoglobin 12.4 g/dL Hematocrit 39.5 % Mean Corpuscular Volume 92.1 fL Mean Corpuscular Hemoglobin 28.9 pg Mean Corpuscular Hemoglobin Concent 31.4 g/dL Red Cell Distribution Width 14.7 % Platelet Count 298 10^3/uL Mean Platelet Volume 10.8 fL Neutrophils (%) (Auto) 86.6 % Lymphocytes (%) (Auto) 9.3 % Monocytes (%) (Auto) 3.5 % Neutrophils # (Auto) 11.3 10^3/uL Lymphocytes # (Auto) 1.2 10^3/uL Monocytes # (Auto) 0.5 10^3/uL Absolute Immature Granulocyte (auto 0.02 10^3 u/L Eosinophils % 0.2 % Basophils % 0.2 % Basophils # 0.0 10^3/uL Eosinophil Count 0.0 10^3/uL Prothrombin Time 9.7 SEC Prothrombin Time INR (Non-Therap) 1.0 Activated Partial Thromboplast Time 23.7 SEC D-Dimer 0.74 mg/L Sodium Level 120 mmol/L 135 mmol/L Potassium Level 5.1 mmol/L 3.7 mmol/L Chloride Level 83.0 mmol/L 95.0 mmol/L Carbon Dioxide Level 25.2 mmol/L 27.0 mmol/L Anion Gap 16.9 16.7 Blood Urea Nitrogen 46 mg/dL 44 mg/dL Creatinine 2.13 mg/dL 1.88 mg/dL Estimated GFR () 28.3 32.7 BUN/Creatinine Ratio 21.0 23.0 Glucose Level 1151 mg/dL 881 mg/dL 465 mg/dL Calcium Level 9.8 mg/dL 9.5 mg/dL Total Bilirubin 0.4 mg/dL Aspartate Amino Transf (AST/SGOT) 15 U/L Alanine Aminotransferase (ALT/SGPT) 21 U/L Alkaline Phosphatase 274 U/L Total Creatine Kinase 157 U/L Troponin I 0.13 ng/mL Pro-B-Type Natriuretic Peptide 155 pg/mL Total Protein 8.4 g/dL Albumin 3.6 g/dL Globulin 4.8 Acetone, Semi-Quantitative NEGATIVE Percent Immature Gran (Cell Imm) 0.20 % Helicobacter pylori Screen NEGATIVE Urine Collection Type VOID Urine Color YELLOW Urine Appearance CLOUDY Urine Bilirubin NEGATIVE MG/DL Urine Ketones NEGATIVE Urine Specific [address] 1.010 Urine pH 5 Urine Protein NEGATIVE Urine Urobilinogen NORMAL Urine Nitrate NEGATIVE Urine Leukocyte Esterase 500/uL 2+ Urine Blood 50 2+ Urine RBC 5-10 RBC/HPF Urine WBC TNTC WBC/HPF Urine Squamous Epithelial Cells MANY #/HPF Urine Amorphous Sediment SMALL Urine Bacteria MANY Urine Yeast FEW Urine Glucose 1000 Test 11/21/18 19:35 11/21/18 22:05 11/22/18 03:00 11/22/18 05:55 Influenza Type A Antigen NEGATIVE Influenza B Immunofluorescence NEGATIVE Sodium Level 136 mmol/L 134 mmol/L 131 mmol/L Potassium Level 3.3 mmol/L 3.4 mmol/L 3.4 mmol/L Chloride Level 99.0 mmol/L 97.0 mmol/L 97.0 mmol/L Carbon Dioxide Level 27.4 mmol/L 28.2 mmol/L 26.4 mmol/L Glucose Level 193 mg/dL 198 mg/dL 187 mg/dL Blood Urea Nitrogen 44 mg/dL 44 mg/dL 46 mg/dL Creatinine 1.84 mg/dL 1.88 mg/dL 1.91 mg/dL Calcium Level 9.7 mg/dL 9.0 mg/dL 8.9 mg/dL Anion Gap 12.9 12.2 11.0 Estimated GFR () 33.5 32.7 32.1 BUN/Creatinine Ratio 23.0 23.0 24.0 Current Medications Medications (Trade) Dose Ordered Sig/Shannon PRN Reason Start Time Stop Time Status Last Admin Aspirin (Aspirin Ec) 81 mg DAILY 11/22/18 09:00 12/22/18 08:59 Ceftriaxone Sodium 1000 mg/ Sodium Chloride 100 ml @ 100 mls/hr BID 11/22/18 09:00 12/21/18 19:59 Enoxaparin Sodium (Lovenox) 40 mg HS 11/21/18 21:00 12/21/18 20:59 11/21/18 21:12 Gabapentin (Neurontin) 300 mg BID 11/21/18 21:00 12/21/18 20:59 11/21/18 21:11 Insulin Human Regular 100 unit/ Sodium Chloride 101 ml @ 0 mls/hr Q0M 11/22/18 06:00 12/22/18 05:59 Isosorbide Mononitrate (Imdur) 30 mg DAILY 11/22/18 09:00 12/22/18 08:59 Metoprolol Tartrate (Lopressor) 100 mg BID 11/22/18 09:00 12/22/18 08:59 Pantoprazole Sodium (Protonix) 40 mg DAILY 11/21/18 21:00 12/21/18 20:59 11/21/18 21:10 Potassium Chloride/Sodium Chloride 1,000 ml @ 100 mls/hr Q10H 11/22/18 08:00 12/22/18 07:59 11/22/18 07:43 Sepsis Infection Criteria Pres: None LEVEL 1 SEPSIS INFECTION CRITE: None/Not assessed LEVEL 2-SIRS (LIST ALL THAT AP: [id number] Cardiovascular Evidence: Not Assessed or None Hematologic Evidence: None/Not assessed Hepatic Evidence: None/Not assessed Metabolic Evidence: None/Not assessed Neurological Evidence: None/Not assessed Respiratory Evidence: None/Not assessed Renal Evidence: None/Not assessed O2 Sat by Pulse Oximetry: 95 Assessment/Plan Assessment/Plan Assessment/Plan 1.) DKA - Improving on Insulin gtt. Underlying etiology very likely UTI and URI. - Continue treatment for above. - May be able to leave ICU today. 2.) Acute Renal Failure - Very likely secondary to ATN from dehydration and intravascular volume depletion. - Continue aggressive fluid resus. - Follow renal function closely. 3.) UTI - Cx currently pending. - Keep on Cipro and Ceftriaxone for now. 4.) DMT2 with Severe Hyperglycemia - Blood sugar of 1100 on admission. Pt. very noncompliant with testing her BS and taking her medication. Also cannot afford most of her medications. - Start Lantus 30 units daily and continue high-dose SSI. 5.) Hyponatremia - Secondary to DKA. - Numbers spontaneously improving. 6.) HTN - Stable. Continue same. 7.) Dehydration - Continue aggressive volume replacement. 8.) Hypotension - Secondary to all above. - Continue fluid replacement. INA HUTSON MD Nov 22, 2018 08:40
--- NOTE | 2018-11-22 08:53 | DIREP ---
PROCEDURE:CHEST 1 VIEW COMPARISON:[facility], CR, XRAY CHEST SINGLE VW, 11/21/2018, 12:13 PM. INDICATIONS:UPPER RESPIRATORY INFECTION FINDINGS: LUNGS/PLEURA:Lordotic projection and low lung volumes. Mildly elevated right hemidiaphragm. No infiltrate or pleural effusion. CARDIAC:Normal cardiac silhouette and normal pulmonary vascularity. MEDIASTINUM:Normal. BONES:Bilateral AC joint osteoarthrosis. OTHER:No additional findings. CONCLUSION:No acute cardiopulmonary process or significant change. Dictated by: Maria Teresa Padilla MD on 11/22/2018 at 08:51 AM
--- NOTE | 2018-11-22 08:53 | NUR ---
SLIDING SCALE REQUESTED WITH [facility] CHECKS FROM DR. HUTSON VIA PHONE NEW ORDERS GIVEN TO GIVE HIGH DOSE WITH REGULAR INSULIN SLIDING SCALE. RBVO.
[2018-11-22] MEDS: LOPRESSOR PO SCH ×2 (09:00→20:37)
[2018-11-22] MEDS ORDERED: DEXTROSE 50%-WATER SYRINGE IV PRN (09:00)
[2018-11-22] MEDS ORDERED: ROCEPHIN ONE (09:14)
[2018-11-22] MEDS: NEURONTIN PO SCH ×2 (09:21→20:36)
[2018-11-22] MEDS: IMDUR PO SCH (09:21)
[2018-11-22] MEDS: ROCEPHIN 1,000 MG in NS 100ML 100 ML IV SCH ×2 (09:21→20:36)
[2018-11-22] MEDS: ASPIRIN EC PO SCH (09:21)
[2018-11-22] MEDS: PROTONIX PO SCH (09:21)
--- NOTE | 2018-11-22 09:45 | NUR ---
DISCHARGE PLAN CASE MANAGEMENT VISITED WITH PATIENT CONCERNING DISCHARGE PLAN AND NEEDS. LIVES AT HOME WITH SON AND DAUGHTER [place]. INDEPENDENT OF ADLS. HAS DME INCLUDING NEBULIZER. CM PROVIDED PATIENT WITH A GLUCOMETER AND SAMPLES OF [employer] WERE PROVIDER BY PATIENT'S PCP-MILLICENT EDMOND. RESOURCE LIST PROVIDED. PATIENT STATED, "I GET MY CHECK NEXT WEEK AND I CAN BUY MY MEDICATIONS THEN IT IS ABOUT $2,000 A MONTH I GET. WHICH IS $1,200 LESS A MONTH THAN I MADE WHEN I WAS WORKING 2 YEARS AGO, SO IT DOES TAKE SOME ADJUSTING." DISCHARGE PLAN IS TO DISCHARGE HOME WITH FAMILY AND CONTINUE SELF CARE. CM WILL CONTINUE TO FOLLOW FOR DISCHARGE NEEDS.
[2018-11-22 10:26] LABS: ABG PCO2 40.2 mmHg (35.0-45.0); ABG PH 7.396 (7.350-7.450); BE(B) -0.6 mmol/L (-2.0-2.0); HCO3act 24.1 mmol/L (22.0-26.0); pO2 69.2 mmHg (75.0-100.0)
[2018-11-22] MEDS: HUMULIN R SQ SCH ×3 (11:28→21:00)
--- NOTE | 2018-11-22 11:45 | NUR ---
BLOOD SUGAR [id number] UNITS OF HUMULIN R GIVEN PER SLIDING SCALE. DR. HUTSON NOTIFIED.
[2018-11-22] MEDS ORDERED: TYLENOL PO ONE (14:17)
--- NOTE | 2018-11-22 14:25 | NUR ---
PATIENT REPORTS HEADACHE DR. HUTSON NOTIFIED NEW ORDERS GIVEN: GIVE 1000MG TYLENOL Q6 PRN FOR PAIN. START PATIENT ON IV CIPRO 400MG Q12. PATIENT MAY TRANSFER TO [facility]. [facility].
[2018-11-22] MEDS: TYLENOL PO PRN ×2 (14:28→20:37)
[2018-11-22] MEDS ORDERED: CIPRO 200 ML IV SCH (14:30)
[2018-11-22] MEDS: CIPRO 200 ML IV SCH (15:00)
--- NOTE | 2018-11-22 16:00 | NUR ---
TRANSFERRED TO [facility] RM 331 VIA WHEELCHAIR. REPORT GIVEN TO Adelina JONES LVN.
--- NOTE | 2018-11-22 16:00 | NUR ---
ARRIVAL PATIENT ARRIVED ON MED-SURG UNIT AT THIS TIME TO ROOM #331. RECEIVED REPORT, ASSUMED CARE FOR PATIENT AT THIS TIME.
--- NOTE | 2018-11-22 18:34 | NUR ---
Report Received report from Alanna Hung LVN
[2018-11-22] MEDS: LOVENOX SQ SCH (20:38)
[2018-11-23 00:23] VITALS: BP 98/55
[2018-11-23 03:43] VITALS: BP 101/56
[2018-11-23] MEDS: NS 1000ML/KCL 20MEQ 1,000 ML IV SCH ×2 (04:04→17:38)
[2018-11-23 06:09] LABS: HEMOGLOBIN 11.7 g/dL (12.0-15.0); MEAN CELL HGB 29.3 pg (26-34); MEAN CELL HGB CONCENTRATION 33.2 g/dL (33-37); MEAN CORP VOLUME 88.2 fL (78-100); MEAN PLATELET VOLUME 10.5 fL (7.8-11.0); RED CELL DISTRIBUTION WIDTH 14.4 % (11.5-14.5); WHITE BLOOD CELL 9.2 10^3/uL (4.5-11.0)
[2018-11-23 07:03] LABS: CALCIUM 8.4 mg/dL (8.4-10.5); CARBON DIOXIDE 24.5 mmol/L (20.0-32)
[2018-11-23 07:17] VITALS: BP 101/69
[2018-11-23] MEDS: HUMULIN R SQ SCH ×4 (09:35→22:15)
[2018-11-23] MEDS: PROTONIX PO SCH (09:38)
[2018-11-23] MEDS: LOPRESSOR PO SCH ×2 (09:38→21:20)
[2018-11-23] MEDS: NEURONTIN PO SCH ×2 (09:38→21:20)
[2018-11-23] MEDS: ASPIRIN EC PO SCH (09:38)
[2018-11-23] MEDS: ROCEPHIN 1,000 MG in NS 100ML 100 ML IV SCH ×2 (09:38→21:20)
[2018-11-23] MEDS: IMDUR PO SCH (09:39)
[2018-11-23] MEDS ORDERED: HUMULIN SQ ONE (13:00)
[2018-11-23 13:47] VITALS: BP 107/57
[2018-11-23] MEDS: CIPRO 200 ML IV SCH (14:19)
--- NOTE | 2018-11-23 16:01 | PRM.PN ---
Subjective Subjective Date: Nov 23, 2018 Time: 16:00 Subjective Feeling a little better today. Blood sugar 300's. Didn't get great sleep overnight. Nausea much improved, feels hungry now. Complains of weakness and difficulty getting up. No other overnight events. VTE VTE Risk Total Score: >5 VTE Risk Score VTE Risk: Score 0-1 = Low Risk (Aggressive mobilization; early ambulation; no VTE prophylaxis required) Score 2: Moderate Risk (Intermittent/Pneumatic Compression Device OR Lovenox/Heparin/Coumadin) Score 3-4: High Risk (Intermittent/Pneumatic Compression Device AND Lovenox/Heparin/Coumadin) Score > or =5: Highest Risk (Intermittent/Pneumatic Compression Device AND Lovenox/Heparin/Coumadin) Review of Systems Constitutional: Weakness; No: Fever, Chills, Sweats, Malaise, Other Respiratory: No: Cough, Dry, Shortness of breath, SOB with excertion, Wheezing , Hemoptysis, Pleuritic Pain, Sputum, Wheezing, Other Cardiovascular: No: Chest Pain, Palpitations, Orthopnea, Paroxysmal Noc. Dyspnea, Edema, Lt Headedness, Other Gastrointestinal: No: Nausea, Vomiting, Abdominal Pain, Diarrhea, Constipation , Melena, Hematochezia, Other Genitourinary: No Dysuria, No Frequency, No Incontinence, No Hematuria, No Retention, No Other Musculoskeletal: No: other, neck pain, shoulder pain, arm pain, back pain, hand pain, leg pain, foot pain Neurological: No: Weakness, Numbness, Incoordination, Change in speech, Confusion, Seizures, Other Allergies: Coded Allergies: No Known Allergies (Unverified , 01/12/17) Scheduled Aspirin (Aspirin Ec), 1 TAB PO DAILY, (Reported) Furosemide (Lasix), 1 TAB PO DAILY, (Reported) Gabapentin (Gabapentin), 1 CAP PO BID, (Reported) Glimepiride (Glimepiride), 1 TAB PO DAILY, (Reported) Hydrochlorothiazide (Hydrochlorothiazide), 1 TAB PO DAILY, (Reported) Isosorbide Mononitrate (Isosorbide Mononitrate Er), 1 TAB PO DAILY, (Reported) Lisinopril (Lisinopril), 1 TAB PO BID, (Reported) Meloxicam (Meloxicam), 1 TAB PO DAILY, (Reported) Metoprolol Tartrate (Lopresser 100MG), 1 TAB PO BID, (Reported) Pravastatin Sodium (Pravastatin Sodium), 1 TAB PO DAILY, (Reported) Discontinued Medications Allopurinol (Allopurinol), 1 TAB PO DAILY, (Reported) Discontinued Reason: HOLD Pioglitazone Hcl (Actos), 30 MG PO DAILY24, (Reported) Discontinued Reason: HOLD Objective Vitals and I/O Vital Sign - Last 24 Hours 11/21/18 11/21/18 11/21/18 11/21/18 11:54 11:54 12:00 12:30 Temp 97.9 97.9 97.9 97.9 97.9 97.9 Pulse 64 64 64 63 Resp 17 17 17 B/P (MAP) 128/65 (86) 116/46 (69) Pulse Ox 97 97 94 O2 Delivery Room Air Room Air 11/21/18 11/21/18 11/21/18 11/21/18 13:00 13:30 14:00 14:30 Pulse 61 63 65 64 B/P (MAP) 116/53 (74) 107/58 (74) 135/76 (95) 111/54 (73) Pulse Ox 92 100 96 98 11/21/18 11/21/18 11/21/18 11/21/18 15:00 15:30 16:00 17:13 Temp 97.9 97.9 Pulse 61 63 64 67 B/P (MAP) 120/46 (70) 109/63 (78) 107/50 (69) 106/58 (74) Pulse Ox 96 98 98 99 11/21/18 11/21/18 11/21/18 11/21/18 17:15 17:28 17:43 17:58 Pulse 65 61 64 Resp 21 16 29 B/P (MAP) 113/55 (74) 104/53 (70) 120/56 (77) Pulse Ox 99 O2 Delivery Room Air 11/21/18 11/21/18 11/21/18 11/21/18 18:13 18:28 18:47 19:00 Pulse 64 63 68 72 Resp 21 11 15 18 B/P (MAP) 104/58 (73) 85/35 (52) 136/52 (80) Pulse Ox 94 97 11/21/18 11/21/18 11/21/18 11/21/18 19:02 19:15 19:17 19:32 Pulse 70 68 72 Resp 43 23 15 B/P (MAP) 106/42 (63) 91/42 (58) 120/62 (81) Pulse Ox 97 O2 Delivery Room Air 11/21/18 11/21/18 11/21/18 11/21/18 19:47 20:00 20:03 20:18 Pulse 70 70 67 67 Resp 14 13 14 B/P (MAP) 95/54 (68) 105/48 (67) 105/53 (70) Pulse Ox 98 97 94 11/21/18 11/21/18 11/21/18 11/21/18 20:32 20:48 21:00 21:02 Pulse 70 69 67 66 Resp 18 16 14 14 B/P (MAP) 121/62 (81) 93/32 (52) 103/58 (73) Pulse Ox 94 93 92 11/21/18 11/21/18 11/21/18 11/21/18 21:18 21:32 21:47 22:00 Pulse 70 69 76 69 Resp 18 44 23 16 B/P (MAP) 165/111 (129) 96/52 (67) 119/48 (71) Pulse Ox 95 93 96 11/21/18 11/21/18 11/21/18 11/21/18 22:02 22:17 22:32 22:48 Pulse 69 69 67 71 Resp 17 13 19 B/P (MAP) 87/25 (45) 121/50 (73) 113/63 (80) 118/78 (91) Pulse Ox 94 97 11/21/18 11/21/18 11/21/18 11/21/18 23:00 23:02 23:17 23:32 Pulse 66 67 66 65 Resp 14 14 15 14 B/P (MAP) 119/67 (84) 108/59 (75) 102/57 (72) Pulse Ox 96 93 11/21/18 11/22/18 11/22/18 11/22/18 23:47 00:00 00:00 00:02 Pulse 69 66 66 Resp 21 14 15 B/P (MAP) 118/63 (81) 112/62 (79) Pulse Ox 92 92 O2 Delivery Room Air 11/22/18 11/22/18 11/22/18 11/22/18 00:17 00:32 00:48 01:00 Pulse 68 71 67 70 Resp 15 16 14 14 B/P (MAP) 90/41 (57) 87/44 (58) 128/67 (87) Pulse Ox 91 91 93 93 11/22/18 11/22/18/01/0511/22/18 01:02 01:17 01:32 01:47 Pulse 70 66 67 65 Resp 14 14 15 14 B/P (MAP) 114/59 (77) 100/61 (74) 110/60 (77) 88/47 (61) Pulse Ox 92 11/22/18 11/22/18/01/0511/22/18 02:00 02:02 02:17 02:33 Pulse 66 67 70 64 Resp 16 15 15 13 B/P (MAP) 80/41 (54) 95/52 (66) 80/46 (57) Pulse Ox 95 92 93 94 11/22/18 11/22/18/01/0511/22/18 02:47 03:00 03:02 03:17 Pulse 64 66 67 70 Resp 14 14 14 14 B/P (MAP) 94/49 (64) 87/52 (64) 115/45 (68) Pulse Ox 95 93 93 91 11/22/18 11/22/18 11/22/18 11/22/18 03:32 03:47 04:00 04:00 Pulse 66 63 66 Resp 11 13 15 B/P (MAP) 101/51 (68) 74/44 (54) Pulse Ox 88 O2 Delivery Room Air 11/22/18 11/22/18 11/22/18 11/22/18 04:02 04:17 04:32 04:47 Pulse 66 68 66 64 Resp 15 15 14 14 B/P (MAP) 99/36 (57) 88/46 (60) 83/42 (56) 91/44 (60) Pulse Ox 91 90 96 93 11/22/18 11/22/18 11/22/18 11/22/18 05:00 05:02 05:17 05:32 Pulse 64 67 65 69 Resp 13 14 14 13 B/P (MAP) 107/47 (67) 95/46 (62) 100/52 (68) Pulse Ox 94 92 91 11/22/18 11/22/18 11/22/18 11/22/18 05:47 06:00 06:02 06:17 Pulse 66 68 65 65 Resp 14 12 14 13 B/P (MAP) 96/53 (67) 95/35 (55) 79/49 (59) Pulse Ox 84 94 94 11/22/18 11/22/18 11/22/18 11/22/18 06:32 06:47 07:02 07:17 Pulse 65 67 66 67 Resp 13 13 15 14 B/P (MAP) 103/43 (63) 82/33 (49) 93/38 (56) 84/37 (53) Pulse Ox 96 95 11/22/18 11/22/18 11/22/18 07:32 07:47 08:09 Temp 97.8 97.8 Pulse 65 67 Resp 13 66 B/P (MAP) 91/59 (70) 104/56 (72) O2 Delivery Room Air Intake and Output 11/21/18 11/21/18 11/22/18 15:00 23:00 07:00 Intake Total 1972 ml Output Total 250 ml 350 ml Balance -250 ml 1622 ml General: Alert, Oriented X3, Cooperative, No acute distress, Other (Morbid obesity.) HEENT: Atraumatic, PERRLA Neck: Supple, No JVD Lungs: Clear to auscultation Heart: Regular rate, Normal S1, Normal S2, No murmurs Abdomen: Normal bowel sounds, Soft, No tenderness, No masses Extremities: No clubbing, No cyanosis, No edema, Normal pulses, No tenderness/ swelling Skin: No rashes, No breakdown, No significant lesion Neuro: Normal gait, Normal speech, Strength at 5/5 X4 ext, Normal tone, Sensation intact Psych/Mental Status: Mental status NL, Mood NL All Results(Lab/Rad) Laboratory Tests Test 11/21/18 12:15 11/21/18 14:13 11/21/18 16:40 11/21/18 18:18 White Blood Count 13.1 10^3/uL Red Blood Count 4.29 10^6/uL Hemoglobin 12.4 g/dL Hematocrit 39.5 % Mean Corpuscular Volume 92.1 fL Mean Corpuscular Hemoglobin 28.9 pg Mean Corpuscular Hemoglobin Concent 31.4 g/dL Red Cell Distribution Width 14.7 % Platelet Count 298 10^3/uL Mean Platelet Volume 10.8 fL Neutrophils (%) (Auto) 86.6 % Lymphocytes (%) (Auto) 9.3 % Monocytes (%) (Auto) 3.5 % Neutrophils # (Auto) 11.3 10^3/uL Lymphocytes # (Auto) 1.2 10^3/uL Monocytes # (Auto) 0.5 10^3/uL Absolute Immature Granulocyte (auto 0.02 10^3 u/L Eosinophils % 0.2 % Basophils % 0.2 % Basophils # 0.0 10^3/uL Eosinophil Count 0.0 10^3/uL Prothrombin Time 9.7 SEC Prothrombin Time INR (Non-Therap) 1.0 Activated Partial Thromboplast Time 23.7 SEC D-Dimer 0.74 mg/L Sodium Level 120 mmol/L 135 mmol/L Potassium Level 5.1 mmol/L 3.7 mmol/L Chloride Level 83.0 mmol/L 95.0 mmol/L Carbon Dioxide Level 25.2 mmol/L 27.0 mmol/L Anion Gap 16.9 16.7 Blood Urea Nitrogen 46 mg/dL 44 mg/dL Creatinine 2.13 mg/dL 1.88 mg/dL Estimated GFR () 28.3 32.7 BUN/Creatinine Ratio 21.0 23.0 Glucose Level 1151 mg/dL 881 mg/dL 465 mg/dL Calcium Level 9.8 mg/dL 9.5 mg/dL Total Bilirubin 0.4 mg/dL Aspartate Amino Transf (AST/SGOT) 15 U/L Alanine Aminotransferase (ALT/SGPT) 21 U/L Alkaline Phosphatase 274 U/L Total Creatine Kinase 157 U/L Troponin I 0.13 ng/mL Pro-B-Type Natriuretic Peptide 155 pg/mL Total Protein 8.4 g/dL Albumin 3.6 g/dL Globulin 4.8 Acetone, Semi-Quantitative NEGATIVE Percent Immature Gran (Cell Imm) 0.20 % Helicobacter pylori Screen NEGATIVE Urine Collection Type VOID Urine Color YELLOW Urine Appearance CLOUDY Urine Bilirubin NEGATIVE MG/DL Urine Ketones NEGATIVE Urine Specific [place] 1.010 Urine pH 5 Urine Protein NEGATIVE Urine Urobilinogen NORMAL Urine Nitrate NEGATIVE Urine Leukocyte Esterase 500/uL 2+ Urine Blood 50 2+ Urine RBC 5-10 RBC/HPF Urine WBC TNTC WBC/HPF Urine Squamous Epithelial Cells MANY #/HPF Urine Amorphous Sediment SMALL Urine Bacteria MANY Urine Yeast FEW Urine Glucose 1000 Test 11/21/18 19:35 11/21/18 22:05 4/5/19 03:00 11/22/18 05:55 Influenza Type A Antigen NEGATIVE Influenza B Immunofluorescence NEGATIVE Sodium Level 136 mmol/L 134 mmol/L 131 mmol/L Potassium Level 3.3 mmol/L 3.4 mmol/L 3.4 mmol/L Chloride Level 99.0 mmol/L 97.0 mmol/L 97.0 mmol/L Carbon Dioxide Level 27.4 mmol/L 28.2 mmol/L 26.4 mmol/L Glucose Level 193 mg/dL 198 mg/dL 187 mg/dL Blood Urea Nitrogen 44 mg/dL 44 mg/dL 46 mg/dL Creatinine 1.84 mg/dL 1.88 mg/dL 1.91 mg/dL Calcium Level 9.7 mg/dL 9.0 mg/dL 8.9 mg/dL Anion Gap 12.9 12.2 11.0 Estimated GFR () 33.5 32.7 32.1 BUN/Creatinine Ratio 23.0 23.0 24.0 Current Medications Medications (Trade) Dose Ordered Sig/Shannon Route PRN Reason Start Time Stop Time Status Last Admin Dose Admin Sodium Chloride 1,000 ml @ 0 mls/hr Q0M ONCE IV 11/21/18 12:30 11/21/18 12:31 DC 11/21/18 12:23 Insulin Human Regular (Humulin R) 6 unit OT ONCE IV 11/21/18 12:30 11/21/18 12:31 DC 11/21/18 12:30 Insulin Human Regular (Humulin R) 10 unit OT STAT SQ 11/21/18 12:01 11/21/18 12:03 DC 11/21/18 12:30 Sodium Chloride 1,000 ml @ ud STK-MED ONCE .ROUTE 11/21/18 12:06 11/21/18 12:07 DC Insulin Human Regular (Humulin R) 1 unit STK-MED ONCE .ROUTE 11/21/18 12:23 11/21/18 12:25 DC Insulin Human Regular (Humulin R) 1 unit STK-MED ONCE .ROUTE 11/21/18 12:25 11/21/18 12:27 DC Sodium Chloride 1,000 ml @ ud STK-MED ONCE .ROUTE 11/21/18 13:59 11/21/18 14:01 DC Insulin Human Regular (Humulin R) 1 unit STK-MED ONCE .ROUTE 11/21/18 13:59 11/21/18 14:01 DC Insulin Human Regular (Humulin R) 1 unit STK-MED ONCE .ROUTE 11/21/18 14:01 11/21/18 14:03 DC Insulin Human Regular (Humulin R) 8 unit Q1HR ONCE IV 11/21/18 15:30 11/21/18 15:31 DC Potassium Chloride/Sodium Chloride 1,000 ml @ 100 mls/hr Q10H IV 11/21/18 15:30 11/21/18 15:30 DC Sodium Chloride 1,000 ml @ 0 mls/hr Q0M ONCE IV 11/21/18 15:30 11/21/18 15:58 DC 11/21/18 14:05 Insulin Human Regular (Humulin R) 6 unit STAT STAT IV 11/21/18 15:15 11/21/18 15:58 DC 11/21/18 14:05 Insulin Human Regular (Humulin R) 10 unit OT ONCE SQ 11/21/18 15:30 11/21/18 15:58 DC 11/21/18 14:08 Insulin Human Regular (Humulin R) 8 unit Q1HR IV 11/21/18 15:30 11/22/18 08:23 DC 11/21/18 15:39 Sodium Chloride 100 ml @ ud STK-MED ONCE IV 11/21/18 15:23 11/21/18 15:26 DC Albuterol/ Ipratropium (Duoneb 0.5 Mg-3 Mg/3 ml Soln) 3 ml STK-MED ONCE IH 11/21/18 15:59 11/21/18 16:02 DC Dexamethasone Sodium Phosphate (Decadron) 4 mg STK-MED ONCE .ROUTE 11/21/18 15:59 11/21/18 16:02 DC Enoxaparin Sodium (Lovenox) 40 mg HS SQ 11/21/18 21:00 12/21/18 20:59 11/21/18 21:12 Pantoprazole Sodium (Protonix) 40 mg DAILY PO 11/21/18 21:00 12/21/18 20:59 11/21/18 21:10 Ceftriaxone Sodium 1000 mg/ Sodium Chloride 100 ml @ 100 mls/hr Q24HRS IV 11/21/18 20:00 11/22/18 07:40 DC 11/21/18 21:10 Sodium Chloride 1,000 ml @ 125 mls/hr Q8H IV 11/21/18 18:00 11/21/18 22:50 DC 11/21/18 18:03 Aspirin (Aspirin Ec) 81 mg DAILY PO 11/22/18 09:00 12/22/18 08:59 Gabapentin (Neurontin) 300 mg BID PO 11/21/18 21:00 12/21/18 20:59 11/21/18 21:11 Isosorbide Mononitrate (Imdur) 30 mg DAILY PO 11/22/18 09:00 12/22/18 08:59 Metoprolol Tartrate (Lopressor) 100 mg BID PO 11/22/18 09:00 12/22/18 08:59 Sodium Chloride 100 ml @ ud STK-MED ONCE IV 11/21/18 21:00 11/21/18 21:01 DC Ceftriaxone Sodium (Rocephin) 1,000 mg STK-MED ONCE .ROUTE 11/21/18 21:00 11/21/18 21:02 DC Dextrose 1,000 ml @ ud STK-MED ONCE .ROUTE 11/21/18 22:07 11/21/18 22:09 DC Dextrose/Sodium Chloride 1,000 ml @ 125 mls/hr Q8H IV 11/21/18 23:00 11/21/18 23:00 DC Dextrose 1,000 ml @ 125 mls/hr Q8H IV 11/21/18 23:00 11/22/18 07:08 DC 11/21/18 22:56 Sodium Chloride 100 ml @ ud STK-MED ONCE IV 11/22/18 05:20 11/22/18 05:22 DC Insulin Human Regular 100 unit/ Sodium Chloride 101 ml @ 0 mls/hr Q0M IV 11/22/18 06:00 12/22/18 05:59 Dextrose/Sodium Chloride 1,000 ml @ ud STK-MED ONCE .ROUTE 11/22/18 06:54 11/22/18 06:56 DC Potassium Chloride/Dextrose/ Sod Cl 1,000 ml @ ud STK-MED ONCE .ROUTE 11/22/18 07:01 11/22/18 07:03 DC Potassium Chloride/Dextrose/ Sod Cl 1,000 ml @ 125 mls/hr Q8H IV 11/22/18 07:30 11/22/18 07:40 DC 11/22/18 07:11 Insulin Glargine (Lantus) 30 unit OT ONCE SQ 11/22/18 07:30 11/22/18 08:24 DC 11/22/18 07:35 Ceftriaxone Sodium 1000 mg/ Sodium Chloride 100 ml @ 100 mls/hr BID IV 11/22/18 09:00 12/21/18 19:59 Potassium Chloride/Sodium Chloride 1,000 ml @ 100 mls/hr Q10H IV 11/22/18 08:00 12/22/18 07:59 11/22/18 07:43 Course Sepsis Screening Results: Posi: NEGATIVE Sepsis Qualifier/Stage: NO DEFINITE RISK Duration or Total Time Spent w: 2 HRS Vitals & review Data Vital Sign - Last 24 Hours 11/21/18 11/21/18 11/21/18 11/21/18 11:54 11:54 12:00 12:30 Temp 97.9 97.9 97.9 97.9 97.9 97.9 Pulse 64 64 64 63 Resp 17 17 17 B/P (MAP) 128/65 (86) 116/46 (69) Pulse Ox 97 97 94 O2 Delivery Room Air Room Air 11/21/18 11/21/18 11/21/18 11/21/18 13:00 13:30 14:00 14:30 Pulse 61 63 65 64 B/P (MAP) 116/53 (74) 107/58 (74) 135/76 (95) 111/54 (73) Pulse Ox 92 100 96 98 11/21/18 11/21/18 11/21/18 11/21/18 15:00 15:30 16:00 17:13 Temp 97.9 97.9 Pulse 61 63 64 67 B/P (MAP) 120/46 (70) 109/63 (78) 107/50 (69) 106/58 (74) Pulse Ox 96 98 98 99 11/21/18 11/21/18 11/21/18 11/21/18 17:15 17:28 17:43 17:58 Pulse 65 61 64 Resp 21 16 29 B/P (MAP) 113/55 (74) 104/53 (70) 120/56 (77) Pulse Ox 99 O2 Delivery Room Air 11/21/18 11/21/18 11/21/18 4/4/19 18:13 18:28 18:47 19:00 Pulse 64 63 68 72 Resp 21 11 15 18 B/P (MAP) 104/58 (73) 85/35 (52) 136/52 (80) Pulse Ox 94 97 11/21/18 11/21/18 11/21/18 11/21/18 19:02 19:15 19:17 19:32 Pulse 70 68 72 Resp 43 23 15 B/P (MAP) 106/42 (63) 91/42 (58) 120/62 (81) Pulse Ox 97 O2 Delivery Room Air 11/21/18 11/21/18 11/21/18 11/21/18 19:47 20:00 20:03 20:18 Pulse 70 70 67 67 Resp 14 13 14 B/P (MAP) 95/54 (68) 105/48 (67) 105/53 (70) Pulse Ox 98 97 94 11/21/18 11/21/18 11/21/18 11/21/18 20:32 20:48 21:00 21:02 Pulse 70 69 67 66 Resp 18 16 14 14 B/P (MAP) 121/62 (81) 93/32 (52) 103/58 (73) Pulse Ox 94 93 92 11/21/18 11/21/18 11/21/18 11/21/18 21:18 21:32 21:47 22:00 Pulse 70 69 76 69 Resp 18 44 23 16 B/P (MAP) 165/111 (129) 96/52 (67) 119/48 (71) Pulse Ox 95 93 96 11/21/18 11/21/18 11/21/18 11/21/18 22:02 22:17 22:32 22:48 Pulse 69 69 67 71 Resp 17 13 19 B/P (MAP) 87/25 (45) 121/50 (73) 113/63 (80) 118/78 (91) Pulse Ox 94 97 11/21/18 11/21/18 11/21/18 11/21/18 23:00 23:02 23:17 23:32 Pulse 66 67 66 65 Resp 14 14 15 14 B/P (MAP) 119/67 (84) 108/59 (75) 102/57 (72) Pulse Ox 96 93 11/21/18 11/22/18 11/22/185/19 23:47 00:00 00:00 00:02 Pulse 69 66 66 Resp 21 14 15 B/P (MAP) 118/63 (81) 112/62 (79) Pulse Ox 92 92 O2 Delivery Room Air 11/22/18 11/22/18 11/22/18 11/22/18 00:17 00:32 00:48 01:00 Pulse 68 71 67 70 Resp 15 16 14 14 B/P (MAP) 90/41 (57) 87/44 (58) 128/67 (87) Pulse Ox 91 91 93 93 11/22/18 11/22/18 11/22/18 11/22/18 01:02 01:17 01:32 01:47 Pulse 70 66 67 65 Resp 14 14 15 14 B/P (MAP) 114/59 (77) 100/61 (74) 110/60 (77) 88/47 (61) Pulse Ox 92 11/22/18 11/22/18 11/22/18 11/22/18 02:00 02:02 02:17 02:33 Pulse 66 67 70 64 Resp 16 15 15 13 B/P (MAP) 80/41 (54) 95/52 (66) 80/46 (57) Pulse Ox 95 92 93 94 11/22/18 11/22/18 11/22/18 11/22/18 02:47 03:00 03:02 03:17 Pulse 64 66 67 70 Resp 14 14 14 14 B/P (MAP) 94/49 (64) 87/52 (64) 115/45 (68) Pulse Ox 95 93 93 91 11/22/18 11/22/18 11/22/18 11/22/18 03:32 03:47 04:00 04:00 Pulse 66 63 66 Resp 11 13 15 B/P (MAP) 101/51 (68) 74/44 (54) Pulse Ox 88 O2 Delivery Room Air 11/22/18 11/22/18 11/22/18 11/22/18 04:02 04:17 04:32 04:47 Pulse 66 68 66 64 Resp 15 15 14 14 B/P (MAP) 99/36 (57) 88/46 (60) 83/42 (56) 91/44 (60) Pulse Ox 91 90 96 93 11/22/18 11/22/18 11/22/18/5/19 05:00 05:02 05:17 05:32 Pulse 64 67 65 69 Resp 13 14 14 13 B/P (MAP) 107/47 (67) 95/46 (62) 100/52 (68) Pulse Ox 94 92 91 11/22/18 11/22/18 11/22/18 11/22/18 05:47 06:00 06:02 06:17 Pulse 66 68 65 65 Resp 14 12 14 13 B/P (MAP) 96/53 (67) 95/35 (55) 79/49 (59) Pulse Ox 84 94 94 11/22/18 11/22/18 11/22/18 11/22/18 06:32 06:47 07:02 07:17 Pulse 65 67 66 67 Resp 13 13 15 14 B/P (MAP) 103/43 (63) 82/33 (49) 93/38 (56) 84/37 (53) Pulse Ox 96 95 11/22/18 11/22/18 11/22/18 07:32 07:47 08:09 Temp 97.8 97.8 Pulse 65 67 Resp 13 66 B/P (MAP) 91/59 (70) 104/56 (72) O2 Delivery Room Air Intake and Output 11/21/18 11/21/18 11/22/18 15:00 23:00 07:00 Intake Total 1972 ml Output Total 250 ml 350 ml Balance -250 ml 1622 ml Laboratory Tests Test 11/21/18 12:15 11/21/18 14:13 11/21/18 16:40 11/21/18 18:18 White Blood Count 13.1 10^3/uL Red Blood Count 4.29 10^6/uL Hemoglobin 12.4 g/dL Hematocrit 39.5 % Mean Corpuscular Volume 92.1 fL Mean Corpuscular Hemoglobin 28.9 pg Mean Corpuscular Hemoglobin Concent 31.4 g/dL Red Cell Distribution Width 14.7 % Platelet Count 298 10^3/uL Mean Platelet Volume 10.8 fL Neutrophils (%) (Auto) 86.6 % Lymphocytes (%) (Auto) 9.3 % Monocytes (%) (Auto) 3.5 % Neutrophils # (Auto) 11.3 10^3/uL Lymphocytes # (Auto) 1.2 10^3/uL Monocytes # (Auto) 0.5 10^3/uL Absolute Immature Granulocyte (auto 0.02 10^3 u/L Eosinophils % 0.2 % Basophils % 0.2 % Basophils # 0.0 10^3/uL Eosinophil Count 0.0 10^3/uL Prothrombin Time 9.7 SEC Prothrombin Time INR (Non-Therap) 1.0 Activated Partial Thromboplast Time 23.7 SEC D-Dimer 0.74 mg/L Sodium Level 120 mmol/L 135 mmol/L Potassium Level 5.1 mmol/L 3.7 mmol/L Chloride Level 83.0 mmol/L 95.0 mmol/L Carbon Dioxide Level 25.2 mmol/L 27.0 mmol/L Anion Gap 16.9 16.7 Blood Urea Nitrogen 46 mg/dL 44 mg/dL Creatinine 2.13 mg/dL 1.88 mg/dL Estimated GFR () 28.3 32.7 BUN/Creatinine Ratio 21.0 23.0 Glucose Level 1151 mg/dL 881 mg/dL 465 mg/dL Calcium Level 9.8 mg/dL 9.5 mg/dL Total Bilirubin 0.4 mg/dL Aspartate Amino Transf (AST/SGOT) 15 U/L Alanine Aminotransferase (ALT/SGPT) 21 U/L Alkaline Phosphatase 274 U/L Total Creatine Kinase 157 U/L Troponin I 0.13 ng/mL Pro-B-Type Natriuretic Peptide 155 pg/mL Total Protein 8.4 g/dL Albumin 3.6 g/dL Globulin 4.8 Acetone, Semi-Quantitative NEGATIVE Percent Immature Gran (Cell Imm) 0.20 % Helicobacter pylori Screen NEGATIVE Urine Collection Type VOID Urine Color YELLOW Urine Appearance CLOUDY Urine Bilirubin NEGATIVE MG/DL Urine Ketones NEGATIVE Urine Specific [place] 1.010 Urine pH 5 Urine Protein NEGATIVE Urine Urobilinogen NORMAL Urine Nitrate NEGATIVE Urine Leukocyte Esterase 500/uL 2+ Urine Blood 50 2+ Urine RBC 5-10 RBC/HPF Urine WBC TNTC WBC/HPF Urine Squamous Epithelial Cells MANY #/HPF Urine Amorphous Sediment SMALL Urine Bacteria MANY Urine Yeast FEW Urine Glucose 1000 Test 11/21/18 19:35 11/21/18 22:05 11/22/18 03:00 11/22/18 05:55 Influenza Type A Antigen NEGATIVE Influenza B Immunofluorescence NEGATIVE Sodium Level 136 mmol/L 134 mmol/L 131 mmol/L Potassium Level 3.3 mmol/L 3.4 mmol/L 3.4 mmol/L Chloride Level 99.0 mmol/L 97.0 mmol/L 97.0 mmol/L Carbon Dioxide Level 27.4 mmol/L 28.2 mmol/L 26.4 mmol/L Glucose Level 193 mg/dL 198 mg/dL 187 mg/dL Blood Urea Nitrogen 44 mg/dL 44 mg/dL 46 mg/dL Creatinine 1.84 mg/dL 1.88 mg/dL 1.91 mg/dL Calcium Level 9.7 mg/dL 9.0 mg/dL 8.9 mg/dL Anion Gap 12.9 12.2 11.0 Estimated GFR () 33.5 32.7 32.1 BUN/Creatinine Ratio 23.0 23.0 24.0 Current Medications Medications (Trade) Dose Ordered Sig/Shannon PRN Reason Start Time Stop Time Status Last Admin Aspirin (Aspirin Ec) 81 mg DAILY 11/22/18 09:00 12/22/18 08:59 Ceftriaxone Sodium 1000 mg/ Sodium Chloride 100 ml @ 100 mls/hr BID 11/22/18 09:00 12/21/18 19:59 Enoxaparin Sodium (Lovenox) 40 mg HS 11/21/18 21:00 12/21/18 20:59 11/21/18 21:12 Gabapentin (Neurontin) 300 mg BID 11/21/18 21:00 12/21/18 20:59 11/21/18 21:11 Insulin Human Regular 100 unit/ Sodium Chloride 101 ml @ 0 mls/hr Q0M 11/22/18 06:00 12/22/18 05:59 Isosorbide Mononitrate (Imdur) 30 mg DAILY 11/22/18 09:00 12/22/18 08:59 Metoprolol Tartrate (Lopressor) 100 mg BID 11/22/18 09:00 12/22/18 08:59 Pantoprazole Sodium (Protonix) 40 mg DAILY 11/21/18 21:00 12/21/18 20:59 11/21/18 21:10 Potassium Chloride/Sodium Chloride 1,000 ml @ 100 mls/hr Q10H 11/22/18 08:00 12/22/18 07:59 11/22/18 07:43 Sepsis Infection Criteria Pres: None LEVEL 1 SEPSIS INFECTION CRITE: ABX Therapy, Urinary Tract Infection LEVEL 2-SIRS (LIST ALL THAT AP: None/Not assessed Cardiovascular Evidence: Not Assessed or None Hematologic Evidence: None/Not assessed Hepatic Evidence: None/Not assessed Metabolic Evidence: None/Not assessed Neurological Evidence: None/Not assessed Respiratory Evidence: None/Not assessed Renal Evidence: None/Not assessed O2 Sat by Pulse Oximetry: 96 Assessment/Plan Assessment/Plan Assessment/Plan 1.) DKA - Improving on Insulin gtt. Underlying etiology very likely UTI and URI. - Continue treatment for above. - Hopefully home tomorrow. 2.) Acute Renal Failure - Very likely secondary to ATN from dehydration and intravascular volume depletion. - Continue aggressive fluid resus. - Follow renal function closely. 3.) UTI - Cx currently pending. - Keep on Cipro and Ceftriaxone for now. 4.) DMT2 with Severe Hyperglycemia - Blood sugar of 1100 on admission. Pt. very noncompliant with testing her BS and taking her medication. Also cannot afford most of her medications. - Start Lantus 30 units daily and continue high-dose SSI. 5.) Hyponatremia - Secondary to DKA. - Numbers spontaneously improving. 6.) HTN - Stable. Continue same. 7.) Dehydration - Continue aggressive volume replacement. 8.) Hypotension - Secondary to all above. - Continue fluid replacement. Plan INA HUTSON MD Nov 23, 2018 16:00
--- NOTE | 2018-11-23 19:50 | NUR ---
Report Received report from Ernesto Lainez RN
[2018-11-23] MEDS: LOVENOX SQ SCH (21:20)
[2018-11-23] MEDS: TYLENOL PO PRN (22:16)
[2018-11-23 22:45] VITALS: BP 136/18
[2018-11-24 03:12] VITALS: BP 104/63
[2018-11-24] MEDS: NS 1000ML/KCL 20MEQ 1,000 ML IV SCH ×2 (05:30)
[2018-11-24 07:22] VITALS: BP 144/74
[2018-11-24] MEDS: HUMULIN R SQ SCH ×2 (08:06→12:26)
[2018-11-24] MEDS: PROTONIX PO SCH (08:21)
[2018-11-24] MEDS: LOPRESSOR PO SCH (08:22)
[2018-11-24] MEDS: NEURONTIN PO SCH (08:22)
[2018-11-24] MEDS: ASPIRIN EC PO SCH (08:22)
[2018-11-24] MEDS: IMDUR PO SCH (08:22)
[2018-11-24] MEDS ORDERED: LANTUS SQ SCH (09:00)
[2018-11-24] MEDS: ROCEPHIN 1,000 MG in NS 100ML 100 ML IV SCH (09:15)
[2018-11-24 11:19] VITALS: BP 135/80
[2018-11-24] MEDS: TYLENOL PO PRN (12:30)
--- NOTE | 2018-11-24 13:51 | PRM.PN ---
Subjective Subjective Date: Nov 24, 2018 Time: 13:49 Subjective Continues to improve. BS overall much better. Fatigue better. No other overnight events. VTE VTE Risk Total Score: >5 VTE Risk Score VTE Risk: Score 0-1 = Low Risk (Aggressive mobilization; early ambulation; no VTE prophylaxis required) Score 2: Moderate Risk (Intermittent/Pneumatic Compression Device OR Lovenox/Heparin/Coumadin) Score 3-4: High Risk (Intermittent/Pneumatic Compression Device AND Lovenox/Heparin/Coumadin) Score > or =5: Highest Risk (Intermittent/Pneumatic Compression Device AND Lovenox/Heparin/Coumadin) Review of Systems Constitutional: Weakness; No: Fever, Chills, Sweats, Malaise, Other Respiratory: No: Cough, Dry, Shortness of breath, SOB with excertion, Wheezing , Hemoptysis, Pleuritic Pain, Sputum, Wheezing, Other Cardiovascular: No: Chest Pain, Palpitations, Orthopnea, Paroxysmal Noc. Dyspnea, Edema, Lt Headedness, Other Gastrointestinal: No: Nausea, Vomiting, Abdominal Pain, Diarrhea, Constipation , Melena, Hematochezia, Other Genitourinary: No Dysuria, No Frequency, No Incontinence, No Hematuria, No Retention, No Other Musculoskeletal: No: other, neck pain, shoulder pain, arm pain, back pain, hand pain, leg pain, foot pain Neurological: No: Weakness, Numbness, Incoordination, Change in speech, Confusion, Seizures, Other Allergies: Coded Allergies: No Known Allergies (Unverified , 01/12/17) Scheduled Aspirin (Aspirin Ec), 1 TAB PO DAILY, (Reported) Furosemide (Lasix), 1 TAB PO DAILY, (Reported) Gabapentin (Gabapentin), 1 CAP PO BID, (Reported) Glimepiride (Glimepiride), 1 TAB PO DAILY, (Reported) Hydrochlorothiazide (Hydrochlorothiazide), 1 TAB PO DAILY, (Reported) Isosorbide Mononitrate (Isosorbide Mononitrate Er), 1 TAB PO DAILY, (Reported) Lisinopril (Lisinopril), 1 TAB PO BID, (Reported) Meloxicam (Meloxicam), 1 TAB PO DAILY, (Reported) Metoprolol Tartrate (Lopresser 100MG), 1 TAB PO BID, (Reported) Pravastatin Sodium (Pravastatin Sodium), 1 TAB PO DAILY, (Reported) Discontinued Medications Allopurinol (Allopurinol), 1 TAB PO DAILY, (Reported) Discontinued Reason: HOLD Pioglitazone Hcl (Actos), 30 MG PO DAILY24, (Reported) Discontinued Reason: HOLD Objective Vitals and I/O Vital Sign - Last 24 Hours 11/21/18 11/21/18 11/21/18 11/21/18 11:54 11:54 12:00 12:30 Temp 97.9 97.9 97.9 97.9 97.9 97.9 Pulse 64 64 64 63 Resp 17 17 17 B/P (MAP) 128/65 (86) 116/46 (69) Pulse Ox 97 97 94 O2 Delivery Room Air Room Air 11/21/18 11/21/18 11/21/18 11/21/18 13:00 13:30 14:00 14:30 Pulse 61 63 65 64 B/P (MAP) 116/53 (74) 107/58 (74) 135/76 (95) 111/54 (73) Pulse Ox 92 100 96 98 11/21/18 11/21/18 11/21/18 11/21/18 15:00 15:30 16:00 17:13 Temp 97.9 97.9 Pulse 61 63 64 67 B/P (MAP) 120/46 (70) 109/63 (78) 107/50 (69) 106/58 (74) Pulse Ox 96 98 98 99 11/21/18 11/21/18 11/21/18 11/21/18 17:15 17:28 17:43 17:58 Pulse 65 61 64 Resp 21 16 29 B/P (MAP) 113/55 (74) 104/53 (70) 120/56 (77) Pulse Ox 99 O2 Delivery Room Air 11/21/18 11/21/18 11/21/18 11/21/18 18:13 18:28 18:47 19:00 Pulse 64 63 68 72 Resp 21 11 15 18 B/P (MAP) 104/58 (73) 85/35 (52) 136/52 (80) Pulse Ox 94 97 11/21/18 11/21/18 11/21/18 11/21/18 19:02 19:15 19:17 19:32 Pulse 70 68 72 Resp 43 23 15 B/P (MAP) 106/42 (63) 91/42 (58) 120/62 (81) Pulse Ox 97 O2 Delivery Room Air 11/21/18 11/21/18 11/21/18 11/21/18 19:47 20:00 20:03 20:18 Pulse 70 70 67 67 Resp 14 13 14 B/P (MAP) 95/54 (68) 105/48 (67) 105/53 (70) Pulse Ox 98 97 94 11/21/18 11/21/18 11/21/18 11/21/18 20:32 20:48 21:00 21:02 Pulse 70 69 67 66 Resp 18 16 14 14 B/P (MAP) 121/62 (81) 93/32 (52) 103/58 (73) Pulse Ox 94 93 92 11/21/18 11/21/18 11/21/18 11/21/18 21:18 21:32 21:47 22:00 Pulse 70 69 76 69 Resp 18 44 23 16 B/P (MAP) 165/111 (129) 96/52 (67) 119/48 (71) Pulse Ox 95 93 96 11/21/18 11/21/18 11/21/18 11/21/18 22:02 22:17 22:32 22:48 Pulse 69 69 67 71 Resp 17 13 19 B/P (MAP) 87/25 (45) 121/50 (73) 113/63 (80) 118/78 (91) Pulse Ox 94 97 11/21/18 11/21/18 11/21/18 11/21/18 23:00 23:02 23:17 23:32 Pulse 66 67 66 65 Resp 14 14 15 14 B/P (MAP) 119/67 (84) 108/59 (75) 102/57 (72) Pulse Ox 96 93 11/21/18 11/22/18 11/22/18 11/22/18 23:47 00:00 00:00 00:02 Pulse 69 66 66 Resp 21 14 15 B/P (MAP) 118/63 (81) 112/62 (79) Pulse Ox 92 92 O2 Delivery Room Air 11/22/18 11/22/18 11/22/18 11/22/18 00:17 00:32 00:48 01:00 Pulse 68 71 67 70 Resp 15 16 14 14 B/P (MAP) 90/41 (57) 87/44 (58) 128/67 (87) Pulse Ox 91 91 93 93 11/22/18 11/22/18/01/0511/22/18 01:02 01:17 01:32 01:47 Pulse 70 66 67 65 Resp 14 14 15 14 B/P (MAP) 114/59 (77) 100/61 (74) 110/60 (77) 88/47 (61) Pulse Ox 92 11/22/18 11/22/18 11/22/18 11/22/18 02:00 02:02 02:17 02:33 Pulse 66 67 70 64 Resp 16 15 15 13 B/P (MAP) 80/41 (54) 95/52 (66) 80/46 (57) Pulse Ox 95 92 93 94 11/22/18 11/22/18 11/22/18 11/22/18 02:47 03:00 03:02 03:17 Pulse 64 66 67 70 Resp 14 14 14 14 B/P (MAP) 94/49 (64) 87/52 (64) 115/45 (68) Pulse Ox 95 93 93 91 11/22/18 11/22/18 11/22/18 11/22/18 03:32 03:47 04:00 04:00 Pulse 66 63 66 Resp 11 13 15 B/P (MAP) 101/51 (68) 74/44 (54) Pulse Ox 88 O2 Delivery Room Air 11/22/18 11/22/18 11/22/18 11/22/18 04:02 04:17 04:32 04:47 Pulse 66 68 66 64 Resp 15 15 14 14 B/P (MAP) 99/36 (57) 88/46 (60) 83/42 (56) 91/44 (60) Pulse Ox 91 90 96 93 11/22/18 11/22/18 11/22/18 11/22/18 05:00 05:02 05:17 05:32 Pulse 64 67 65 69 Resp 13 14 14 13 B/P (MAP) 107/47 (67) 95/46 (62) 100/52 (68) Pulse Ox 94 92 91 11/22/18 11/22/18 11/22/18 11/22/18 05:47 06:00 06:02 06:17 Pulse 66 68 65 65 Resp 14 12 14 13 B/P (MAP) 96/53 (67) 95/35 (55) 79/49 (59) Pulse Ox 84 94 94 11/22/18 11/22/18 11/22/18 11/22/18 06:32 06:47 07:02 07:17 Pulse 65 67 66 67 Resp 13 13 15 14 B/P (MAP) 103/43 (63) 82/33 (49) 93/38 (56) 84/37 (53) Pulse Ox 96 95 11/22/18 11/22/18 11/22/18 07:32 07:47 08:09 Temp 97.8 97.8 Pulse 65 67 Resp 13 66 B/P (MAP) 91/59 (70) 104/56 (72) O2 Delivery Room Air Intake and Output 11/21/18 11/21/18 11/22/18 15:00 23:00 07:00 Intake Total 1972 ml Output Total 250 ml 350 ml Balance -250 ml 1622 ml General: Alert, Oriented X3, Cooperative, No acute distress, Other (Morbid obesity.) HEENT: Atraumatic, PERRLA Neck: Supple, No JVD Lungs: Clear to auscultation Heart: Regular rate, Normal S1, Normal S2, No murmurs Abdomen: Normal bowel sounds, Soft, No tenderness, No masses Extremities: No clubbing, No cyanosis, No edema, Normal pulses, No tenderness/ swelling Skin: No rashes, No breakdown, No significant lesion Neuro: Normal gait, Normal speech, Strength at 5/5 X4 ext, Normal tone, Sensation intact Psych/Mental Status: Mental status NL, Mood NL All Results(Lab/Rad) Laboratory Tests Test 11/21/18 12:15 11/21/18 14:13 11/21/18 16:40 11/21/18 18:18 White Blood Count 13.1 10^3/uL Red Blood Count 4.29 10^6/uL Hemoglobin 12.4 g/dL Hematocrit 39.5 % Mean Corpuscular Volume 92.1 fL Mean Corpuscular Hemoglobin 28.9 pg Mean Corpuscular Hemoglobin Concent 31.4 g/dL Red Cell Distribution Width 14.7 % Platelet Count 298 10^3/uL Mean Platelet Volume 10.8 fL Neutrophils (%) (Auto) 86.6 % Lymphocytes (%) (Auto) 9.3 % Monocytes (%) (Auto) 3.5 % Neutrophils # (Auto) 11.3 10^3/uL Lymphocytes # (Auto) 1.2 10^3/uL Monocytes # (Auto) 0.5 10^3/uL Absolute Immature Granulocyte (auto 0.02 10^3 u/L Eosinophils % 0.2 % Basophils % 0.2 % Basophils # 0.0 10^3/uL Eosinophil Count 0.0 10^3/uL Prothrombin Time 9.7 SEC Prothrombin Time INR (Non-Therap) 1.0 Activated Partial Thromboplast Time 23.7 SEC D-Dimer 0.74 mg/L Sodium Level 120 mmol/L 135 mmol/L Potassium Level 5.1 mmol/L 3.7 mmol/L Chloride Level 83.0 mmol/L 95.0 mmol/L Carbon Dioxide Level 25.2 mmol/L 27.0 mmol/L Anion Gap 16.9 16.7 Blood Urea Nitrogen 46 mg/dL 44 mg/dL Creatinine 2.13 mg/dL 1.88 mg/dL Estimated GFR () 28.3 32.7 BUN/Creatinine Ratio 21.0 23.0 Glucose Level 1151 mg/dL 881 mg/dL 465 mg/dL Calcium Level 9.8 mg/dL 9.5 mg/dL Total Bilirubin 0.4 mg/dL Aspartate Amino Transf (AST/SGOT) 15 U/L Alanine Aminotransferase (ALT/SGPT) 21 U/L Alkaline Phosphatase 274 U/L Total Creatine Kinase 157 U/L Troponin I 0.13 ng/mL Pro-B-Type Natriuretic Peptide 155 pg/mL Total Protein 8.4 g/dL Albumin 3.6 g/dL Globulin 4.8 Acetone, Semi-Quantitative NEGATIVE Percent Immature Gran (Cell Imm) 0.20 % Helicobacter pylori Screen NEGATIVE Urine Collection Type VOID Urine Color YELLOW Urine Appearance CLOUDY Urine Bilirubin NEGATIVE MG/DL Urine Ketones NEGATIVE Urine Specific Terrell 1.010 Urine pH 5 Urine Protein NEGATIVE Urine Urobilinogen NORMAL Urine Nitrate NEGATIVE Urine Leukocyte Esterase 500/uL 2+ Urine Blood 50 2+ Urine RBC 5-10 RBC/HPF Urine WBC TNTC WBC/HPF Urine Squamous Epithelial Cells MANY #/HPF Urine Amorphous Sediment SMALL Urine Bacteria MANY Urine Yeast FEW Urine Glucose 1000 Test 11/21/18 19:35 11/21/18 22:05 11/22/18 03:00 11/22/18 05:55 Influenza Type A Antigen NEGATIVE Influenza B Immunofluorescence NEGATIVE Sodium Level 136 mmol/L 134 mmol/L 131 mmol/L Potassium Level 3.3 mmol/L 3.4 mmol/L 3.4 mmol/L Chloride Level 99.0 mmol/L 97.0 mmol/L 97.0 mmol/L Carbon Dioxide Level 27.4 mmol/L 28.2 mmol/L 26.4 mmol/L Glucose Level 193 mg/dL 198 mg/dL 187 mg/dL Blood Urea Nitrogen 44 mg/dL 44 mg/dL 46 mg/dL Creatinine 1.84 mg/dL 1.88 mg/dL 1.91 mg/dL Calcium Level 9.7 mg/dL 9.0 mg/dL 8.9 mg/dL Anion Gap 12.9 12.2 11.0 Estimated GFR () 33.5 32.7 32.1 BUN/Creatinine Ratio 23.0 23.0 24.0 Current Medications Medications (Trade) Dose Ordered Sig/Shannon Route PRN Reason Start Time Stop Time Status Last Admin Dose Admin Sodium Chloride 1,000 ml @ 0 mls/hr Q0M ONCE IV 11/21/18 12:30 11/21/18 12:31 DC 11/21/18 12:23 Insulin Human Regular (Humulin R) 6 unit OT ONCE IV 11/21/18 12:30 11/21/18 12:31 DC 11/21/18 12:30 Insulin Human Regular (Humulin R) 10 unit OT STAT SQ 11/21/18 12:01 11/21/18 12:03 DC 11/21/18 12:30 Sodium Chloride 1,000 ml @ ud STK-MED ONCE .ROUTE 11/21/18 12:06 11/21/18 12:07 DC Insulin Human Regular (Humulin R) 1 unit STK-MED ONCE .ROUTE 11/21/18 12:23 11/21/18 12:25 DC Insulin Human Regular (Humulin R) 1 unit STK-MED ONCE .ROUTE 11/21/18 12:25 11/21/18 12:27 DC Sodium Chloride 1,000 ml @ ud STK-MED ONCE .ROUTE 11/21/18 13:59 11/21/18 14:01 DC Insulin Human Regular (Humulin R) 1 unit STK-MED ONCE .ROUTE 11/21/18 13:59 11/21/18 14:01 DC Insulin Human Regular (Humulin R) 1 unit STK-MED ONCE .ROUTE 11/21/18 14:01 11/21/18 14:03 DC Insulin Human Regular (Humulin R) 8 unit Q1HR ONCE IV 11/21/18 15:30 11/21/18 15:31 DC Potassium Chloride/Sodium Chloride 1,000 ml @ 100 mls/hr Q10H IV 11/21/18 15:30 11/21/18 15:30 DC Sodium Chloride 1,000 ml @ 0 mls/hr Q0M ONCE IV 11/21/18 15:30 11/21/18 15:58 DC 11/21/18 14:05 Insulin Human Regular (Humulin R) 6 unit STAT STAT IV 11/21/18 15:15 11/21/18 15:58 DC 11/21/18 14:05 Insulin Human Regular (Humulin R) 10 unit OT ONCE SQ 11/21/18 15:30 11/21/18 15:58 DC 11/21/18 14:08 Insulin Human Regular (Humulin R) 8 unit Q1HR IV 11/21/18 15:30 11/22/18 08:23 DC 11/21/18 15:39 Sodium Chloride 100 ml @ ud STK-MED ONCE IV 11/21/18 15:23 11/21/18 15:26 DC Albuterol/ Ipratropium (Duoneb 0.5 Mg-3 Mg/3 ml Soln) 3 ml STK-MED ONCE IH 11/21/18 15:59 11/21/18 16:02 DC Dexamethasone Sodium Phosphate (Decadron) 4 mg STK-MED ONCE .ROUTE 11/21/18 15:59 11/21/18 16:02 DC Enoxaparin Sodium (Lovenox) 40 mg HS SQ 11/21/18 21:00 12/21/18 20:59 11/21/18 21:12 Pantoprazole Sodium (Protonix) 40 mg DAILY PO 11/21/18 21:00 12/21/18 20:59 11/21/18 21:10 Ceftriaxone Sodium 1000 mg/ Sodium Chloride 100 ml @ 100 mls/hr Q24HRS IV 11/21/18 20:00 11/22/18 07:40 DC 11/21/18 21:10 Sodium Chloride 1,000 ml @ 125 mls/hr Q8H IV 11/21/18 18:00 11/21/18 22:50 DC 11/21/18 18:03 Aspirin (Aspirin Ec) 81 mg DAILY PO 11/22/18 09:00 12/22/18 08:59 Gabapentin (Neurontin) 300 mg BID PO 11/21/18 21:00 12/21/18 20:59 11/21/18 21:11 Isosorbide Mononitrate (Imdur) 30 mg DAILY PO 11/22/18 09:00 12/22/18 08:59 Metoprolol Tartrate (Lopressor) 100 mg BID PO 11/22/18 09:00 12/22/18 08:59 Sodium Chloride 100 ml @ ud STK-MED ONCE IV 11/21/18 21:00 11/21/18 21:01 DC Ceftriaxone Sodium (Rocephin) 1,000 mg STK-MED ONCE .ROUTE 11/21/18 21:00 11/21/18 21:02 DC Dextrose 1,000 ml @ ud STK-MED ONCE .ROUTE 11/21/18 22:07 11/21/18 22:09 DC Dextrose/Sodium Chloride 1,000 ml @ 125 mls/hr Q8H IV 11/21/18 23:00 11/21/18 23:00 DC Dextrose 1,000 ml @ 125 mls/hr Q8H IV 11/21/18 23:00 11/22/18 07:08 DC 11/21/18 22:56 Sodium Chloride 100 ml @ ud STK-MED ONCE IV 11/22/18 05:20 11/22/18 05:22 DC Insulin Human Regular 100 unit/ Sodium Chloride 101 ml @ 0 mls/hr Q0M IV 11/22/18 06:00 12/22/18 05:59 Dextrose/Sodium Chloride 1,000 ml @ ud STK-MED ONCE .ROUTE 11/22/18 06:54 11/22/18 06:56 DC Potassium Chloride/Dextrose/ Sod Cl 1,000 ml @ ud STK-MED ONCE .ROUTE 11/22/18 07:01 11/22/18 07:03 DC Potassium Chloride/Dextrose/ Sod Cl 1,000 ml @ 125 mls/hr Q8H IV 11/22/18 07:30 11/22/18 07:40 DC 11/22/18 07:11 Insulin Glargine (Lantus) 30 unit OT ONCE SQ 11/22/18 07:30 11/22/18 08:24 DC 11/22/18 07:35 Ceftriaxone Sodium 1000 mg/ Sodium Chloride 100 ml @ 100 mls/hr BID IV 11/22/18 09:00 12/21/18 19:59 Potassium Chloride/Sodium Chloride 1,000 ml @ 100 mls/hr Q10H IV 11/22/18 08:00 12/22/18 07:59 11/22/18 07:43 Course Sepsis Screening Results: Posi: NEGATIVE Sepsis Qualifier/Stage: NO DEFINITE RISK Duration or Total Time Spent w: 2 HRS Vitals & review Data Vital Sign - Last 24 Hours 11/21/18 11/21/18 11/21/18 11/21/18 11:54 11:54 12:00 12:30 Temp 97.9 97.9 97.9 97.9 97.9 97.9 Pulse 64 64 64 63 Resp 17 17 17 B/P (MAP) 128/65 (86) 116/46 (69) Pulse Ox 97 97 94 O2 Delivery Room Air Room Air 11/21/18 11/21/18 11/21/18 11/21/18 13:00 13:30 14:00 14:30 Pulse 61 63 65 64 B/P (MAP) 116/53 (74) 107/58 (74) 135/76 (95) 111/54 (73) Pulse Ox 92 100 96 98 11/21/18 11/21/18 11/21/18 11/21/18 15:00 15:30 16:00 17:13 Temp 97.9 97.9 Pulse 61 63 64 67 B/P (MAP) 120/46 (70) 109/63 (78) 107/50 (69) 106/58 (74) Pulse Ox 96 98 98 99 11/21/18 11/21/18 11/21/18 11/21/18 17:15 17:28 17:43 17:58 Pulse 65 61 64 Resp 21 16 29 B/P (MAP) 113/55 (74) 104/53 (70) 120/56 (77) Pulse Ox 99 O2 Delivery Room Air 11/21/18 11/21/18 11/21/18 11/21/18 18:13 18:28 18:47 19:00 Pulse 64 63 68 72 Resp 21 11 15 18 B/P (MAP) 104/58 (73) 85/35 (52) 136/52 (80) Pulse Ox 94 97 11/21/18 11/21/18 11/21/18 11/21/18 19:02 19:15 19:17 19:32 Pulse 70 68 72 Resp 43 23 15 B/P (MAP) 106/42 (63) 91/42 (58) 120/62 (81) Pulse Ox 97 O2 Delivery Room Air 11/21/18 11/21/18 11/21/18 11/21/18 19:47 20:00 20:03 20:18 Pulse 70 70 67 67 Resp 14 13 14 B/P (MAP) 95/54 (68) 105/48 (67) 105/53 (70) Pulse Ox 98 97 94 11/21/18 11/21/18 11/21/18 11/21/18 20:32 20:48 21:00 21:02 Pulse 70 69 67 66 Resp 18 16 14 14 B/P (MAP) 121/62 (81) 93/32 (52) 103/58 (73) Pulse Ox 94 93 92 11/21/18 11/21/18 11/21/18 11/21/18 21:18 21:32 21:47 22:00 Pulse 70 69 76 69 Resp 18 44 23 16 B/P (MAP) 165/111 (129) 96/52 (67) 119/48 (71) Pulse Ox 95 93 96 11/21/18 11/21/18 11/21/18 11/21/18 22:02 22:17 22:32 22:48 Pulse 69 69 67 71 Resp 17 13 19 B/P (MAP) 87/25 (45) 121/50 (73) 113/63 (80) 118/78 (91) Pulse Ox 94 97 11/21/18 11/21/18 11/21/18 11/21/18 23:00 23:02 23:17 23:32 Pulse 66 67 66 65 Resp 14 14 15 14 B/P (MAP) 119/67 (84) 108/59 (75) 102/57 (72) Pulse Ox 96 93 11/21/18 11/22/18 11/22/18 11/22/18 23:47 00:00 00:00 00:02 Pulse 69 66 66 Resp 21 14 15 B/P (MAP) 118/63 (81) 112/62 (79) Pulse Ox 92 92 O2 Delivery Room Air 11/22/18 11/22/18 11/22/18 11/22/18 00:17 00:32 00:48 01:00 Pulse 68 71 67 70 Resp 15 16 14 14 B/P (MAP) 90/41 (57) 87/44 (58) 128/67 (87) Pulse Ox 91 91 93 93 11/22/18 11/22/18 11/22/18 11/22/18 01:02 01:17 01:32 01:47 Pulse 70 66 67 65 Resp 14 14 15 14 B/P (MAP) 114/59 (77) 100/61 (74) 110/60 (77) 88/47 (61) Pulse Ox 92 11/22/18 11/22/18/01/0511/22/18 02:00 02:02 02:17 02:33 Pulse 66 67 70 64 Resp 16 15 15 13 B/P (MAP) 80/41 (54) 95/52 (66) 80/46 (57) Pulse Ox 95 92 93 94 11/22/18 11/22/18/01/0511/22/18 02:47 03:00 03:02 03:17 Pulse 64 66 67 70 Resp 14 14 14 14 B/P (MAP) 94/49 (64) 87/52 (64) 115/45 (68) Pulse Ox 95 93 93 91 11/22/18/01/05/01/0511/22/18 03:32 03:47 04:00 04:00 Pulse 66 63 66 Resp 11 13 15 B/P (MAP) 101/51 (68) 74/44 (54) Pulse Ox 88 O2 Delivery Room Air 11/22/18 11/22/18/01/0511/22/18 04:02 04:17 04:32 04:47 Pulse 66 68 66 64 Resp 15 15 14 14 B/P (MAP) 99/36 (57) 88/46 (60) 83/42 (56) 91/44 (60) Pulse Ox 91 90 96 93 11/22/18/01/05/01/0511/22/18 05:00 05:02 05:17 05:32 Pulse 64 67 65 69 Resp 13 14 14 13 B/P (MAP) 107/47 (67) 95/46 (62) 100/52 (68) Pulse Ox 94 92 91 11/22/18 11/22/18 11/22/18 11/22/18 05:47 06:00 06:02 06:17 Pulse 66 68 65 65 Resp 14 12 14 13 B/P (MAP) 96/53 (67) 95/35 (55) 79/49 (59) Pulse Ox 84 94 94 11/22/18 11/22/18 11/22/18 11/22/18 06:32 06:47 07:02 07:17 Pulse 65 67 66 67 Resp 13 13 15 14 B/P (MAP) 103/43 (63) 82/33 (49) 93/38 (56) 84/37 (53) Pulse Ox 96 95 11/22/18 11/22/18 11/22/18 07:32 07:47 08:09 Temp 97.8 97.8 Pulse 65 67 Resp 13 66 B/P (MAP) 91/59 (70) 104/56 (72) O2 Delivery Room Air Intake and Output 11/21/18 11/21/18 11/22/18 15:00 23:00 07:00 Intake Total 1972 ml Output Total 250 ml 350 ml Balance -250 ml 1622 ml Laboratory Tests Test 11/21/18 12:15 11/21/18 14:13 11/21/18 16:40 11/21/18 18:18 White Blood Count 13.1 10^3/uL Red Blood Count 4.29 10^6/uL Hemoglobin 12.4 g/dL Hematocrit 39.5 % Mean Corpuscular Volume 92.1 fL Mean Corpuscular Hemoglobin 28.9 pg Mean Corpuscular Hemoglobin Concent 31.4 g/dL Red Cell Distribution Width 14.7 % Platelet Count 298 10^3/uL Mean Platelet Volume 10.8 fL Neutrophils (%) (Auto) 86.6 % Lymphocytes (%) (Auto) 9.3 % Monocytes (%) (Auto) 3.5 % Neutrophils # (Auto) 11.3 10^3/uL Lymphocytes # (Auto) 1.2 10^3/uL Monocytes # (Auto) 0.5 10^3/uL Absolute Immature Granulocyte (auto 0.02 10^3 u/L Eosinophils % 0.2 % Basophils % 0.2 % Basophils # 0.0 10^3/uL Eosinophil Count 0.0 10^3/uL Prothrombin Time 9.7 SEC Prothrombin Time INR (Non-Therap) 1.0 Activated Partial Thromboplast Time 23.7 SEC D-Dimer 0.74 mg/L Sodium Level 120 mmol/L 135 mmol/L Potassium Level 5.1 mmol/L 3.7 mmol/L Chloride Level 83.0 mmol/L 95.0 mmol/L Carbon Dioxide Level 25.2 mmol/L 27.0 mmol/L Anion Gap 16.9 16.7 Blood Urea Nitrogen 46 mg/dL 44 mg/dL Creatinine 2.13 mg/dL 1.88 mg/dL Estimated GFR () 28.3 32.7 BUN/Creatinine Ratio 21.0 23.0 Glucose Level 1151 mg/dL 881 mg/dL 465 mg/dL Calcium Level 9.8 mg/dL 9.5 mg/dL Total Bilirubin 0.4 mg/dL Aspartate Amino Transf (AST/SGOT) 15 U/L Alanine Aminotransferase (ALT/SGPT) 21 U/L Alkaline Phosphatase 274 U/L Total Creatine Kinase 157 U/L Troponin I 0.13 ng/mL Pro-B-Type Natriuretic Peptide 155 pg/mL Total Protein 8.4 g/dL Albumin 3.6 g/dL Globulin 4.8 Acetone, Semi-Quantitative NEGATIVE Percent Immature Gran (Cell Imm) 0.20 % Helicobacter pylori Screen NEGATIVE Urine Collection Type VOID Urine Color YELLOW Urine Appearance CLOUDY Urine Bilirubin NEGATIVE MG/DL Urine Ketones NEGATIVE Urine Specific Terrell 1.010 Urine pH 5 Urine Protein NEGATIVE Urine Urobilinogen NORMAL Urine Nitrate NEGATIVE Urine Leukocyte Esterase 500/uL 2+ Urine Blood 50 2+ Urine RBC 5-10 RBC/HPF Urine WBC TNTC WBC/HPF Urine Squamous Epithelial Cells MANY #/HPF Urine Amorphous Sediment SMALL Urine Bacteria MANY Urine Yeast FEW Urine Glucose 1000 Test 11/21/18 19:35 11/21/18 22:05 11/22/18 03:00 11/22/18 05:55 Influenza Type A Antigen NEGATIVE Influenza B Immunofluorescence NEGATIVE Sodium Level 136 mmol/L 134 mmol/L 131 mmol/L Potassium Level 3.3 mmol/L 3.4 mmol/L 3.4 mmol/L Chloride Level 99.0 mmol/L 97.0 mmol/L 97.0 mmol/L Carbon Dioxide Level 27.4 mmol/L 28.2 mmol/L 26.4 mmol/L Glucose Level 193 mg/dL 198 mg/dL 187 mg/dL Blood Urea Nitrogen 44 mg/dL 44 mg/dL 46 mg/dL Creatinine 1.84 mg/dL 1.88 mg/dL 1.91 mg/dL Calcium Level 9.7 mg/dL 9.0 mg/dL 8.9 mg/dL Anion Gap 12.9 12.2 11.0 Estimated GFR () 33.5 32.7 32.1 BUN/Creatinine Ratio 23.0 23.0 24.0 Current Medications Medications (Trade) Dose Ordered Sig/Shannon PRN Reason Start Time Stop Time Status Last Admin Aspirin (Aspirin Ec) 81 mg DAILY 11/22/18 09:00 12/22/18 08:59 Ceftriaxone Sodium 1000 mg/ Sodium Chloride 100 ml @ 100 mls/hr BID 11/22/18 09:00 12/21/18 19:59 Enoxaparin Sodium (Lovenox) 40 mg HS 11/21/18 21:00 12/21/18 20:59 11/21/18 21:12 Gabapentin (Neurontin) 300 mg BID 11/21/18 21:00 12/21/18 20:59 11/21/18 21:11 Insulin Human Regular 100 unit/ Sodium Chloride 101 ml @ 0 mls/hr Q0M 11/22/18 06:00 12/22/18 05:59 Isosorbide Mononitrate (Imdur) 30 mg DAILY 11/22/18 09:00 12/22/18 08:59 Metoprolol Tartrate (Lopressor) 100 mg BID 11/22/18 09:00 12/22/18 08:59 Pantoprazole Sodium (Protonix) 40 mg DAILY 11/21/18 21:00 12/21/18 20:59 11/21/18 21:10 Potassium Chloride/Sodium Chloride 1,000 ml @ 100 mls/hr Q10H 11/22/18 08:00 12/22/18 07:59 11/22/18 07:43 Sepsis Infection Criteria Pres: Suspected Infection LEVEL 1 SEPSIS INFECTION CRITE: ABX Therapy, Urinary Tract Infection LEVEL 2-SIRS (LIST ALL THAT AP: None/Not assessed Cardiovascular Evidence: Not Assessed or None Hematologic Evidence: None/Not assessed Hepatic Evidence: None/Not assessed Metabolic Evidence: None/Not assessed Neurological Evidence: None/Not assessed Respiratory Evidence: None/Not assessed Renal Evidence: None/Not assessed O2 Sat by Pulse Oximetry: 97 Assessment/Plan Assessment/Plan Assessment/Plan 1.) DKA - Resolved. Underlying etiology very likely UTI and URI. - Continue treatment for above. - Home today. 2.) Acute Renal Failure - Very likely secondary to ATN from dehydration and intravascular volume depletion. - Resolved. - Follow renal function closely. 3.) UTI - Cx currently pending. - Keep on Cipro and Ceftriaxone for now. 4.) DMT2 with Severe Hyperglycemia - Blood sugar of 1100 on admission. Pt. very noncompliant with testing her BS and taking her medication. Also cannot afford most of her medications. - Start Lantus 30 units daily and continue high-dose SSI if she can afford, if not will d/c on 70/30. 5.) Hyponatremia - Secondary to DKA. - Numbers spontaneously improving. 6.) HTN - Stable. Continue same. 7.) Dehydration - Continue aggressive volume replacement. 8.) Hypotension - Secondary to all above. - Continue fluid replacement. Plan INA HUTSON MD Nov 24, 2018 13:51
[2018-11-24] MEDS ORDERED: AMOX1TAB63 PO (14:01)
[2018-11-24] MEDS ORDERED: INSU100V3 SQ (14:01)
[2018-11-24 16:00] VITALS: BP 135/80
--- NOTE | 2018-11-24 16:30 | NUR ---
discharge Patient discharged home. IV discontinued. No Longer complaining if headache, after having Tylenol. to the Exit in a wheelchair with all of her belongings.
--- NOTE | 2018-11-24 16:40 | HPH ---
ADMIT DATE: 11/24/2018 ADMITTING DIAGNOSES: 1. Mental status change. 2. Diabetic ketoacidosis. 3. Acute renal failure. 4. Diabetes mellitus with severe hyperglycemia. 5. Hyponatremia. 6. Hypertension. 7. Dehydration. 8. Hypotension. DISCHARGE DIAGNOSES: 1. Diabetic ketoacidosis. 2. Acute renal failure secondary to acute tubular necrosis present on admission. 3. Urinary tract infection. 4. Diabetes mellitus type 2 with severe hyperglycemia. 5. Hyponatremia. 6. Hypertension. 7. Dehydration. 8. Hypotension. DISCHARGE MEDICATIONS: 1. Humalog 75/25 -- 30 units subcutaneous b.i.d. 2. Resume previous home medications. DISCHARGE DISPOSITION: Home. HOSPITAL COURSE: This is a 63-year-old female with medical noncompliance and diabetes mellitus type 2, who was admitted to [facility] on December 01. She was found to be in DKA at that time with blood glucose of 1200. She was admitted to the intensive care unit and placed on an insulin drip and aggressive IV fluid volume resuscitation. She was found to have an upper respiratory infection, which was several weeks old that was resolving prior to this. She was also found to have urinary tract infection, although she did not have focal symptoms of this. Admission vital were stable other than mild hypotension. She did well in the Intensive Care Unit with her blood sugar responding well and reducing quickly. She was placed on empiric antibiotics, which were tailored to urinary tract infection. Urine culture was done and is currently pending. Chest x-ray was clear of acute cardiopulmonary disease. She was able to be transferred to the floor after 24 hours. She had intermittent hyperglycemia, which was treated with Lantus initially and switched to 70/30 Humulin. She felt much better and was feeling back at baseline without any significant symptoms or complaints. Her laboratory evaluation at time of discharge was improved with her renal function improving to BUN and creatinine of 45 and 1.7 respectively at the time of discharge. She was able to be discharged to home in stable condition with instructions to follow up with me within the next 5-7 days. Hebert Montenegro MD DR: ERIC/julio JOB# [id number]
--- NOTE | 2018-11-24 17:43 | HPH ---
ADMIT DATE: 11/21/2018 CHIEF COMPLAINT: Mental status change and fatigue. HISTORY OF PRESENT ILLNESS: This is a 63-year-old female with a history of diabetes mellitus and medical noncompliance. She has been feeling bad over the last week with weakness, fatigue, dizziness that all started fairly suddenly over the last 5 days. She states that she had run out of some of her medications over the last couple of weeks and was not able to afford more. She had also had an upper respiratory tract infection that was bothering her with shortness of breath and cough and she was not able to get any medication for this. She states that she lost her glucometer and has not been able to check her blood sugars and thus does not know what it has been running. She was starting to feel somewhat confused and disoriented on day of admission and presented to the urgent care on day of admission. They sent her to the Emergency Department where she was found to have blood sugar of 1200. PAST MEDICAL HISTORY: 1. Diabetes mellitus type 2. 2. Hypertension. 3. History of coronary artery disease. MEDICATIONS: See admit medication reconciliation form. ALLERGIES: No known drug allergies. PAST SURGICAL HISTORY: Tonsillectomy. SOCIAL HISTORY: No alcohol, tobacco or recreational drugs -- none. FAMILY HISTORY: Noncontributory. REVIEW OF SYSTEMS: GENERAL: Positive for recent weakness, fatigue, malaise. No fever. CARDIAC: Denies chest pain, orthopnea, PND or palpitations. RESPIRATORY: Denies shortness of breath, cough or congestion. GASTROINTESTINAL: No nausea, vomiting, diarrhea or constipation. GENITOURINARY: Denies dysuria, frequency, hematuria or nocturia. HEMATOLOGIC: No easy bleeding or bruising. ENDOCRINE: No recent weight loss or weight gain. No temperature intolerance. NEUROLOGIC: Denies headache, paresthesias or dizziness. MUSCULOSKELETAL: No complaints of bones, muscles or joints. NEUROLOGIC: Denies headache, paresthesias or dizziness. PSYCHIATRIC: Denies depression or anxiety. DERMATOLOGIC: Denies skin rashes or skin lesions. PHYSICAL EXAMINATION: VITAL SIGNS: Temperature 97.9, pulse 64, respirations 17, pulse ox 97% on room air, blood pressure 128/65. GENERAL: This is a well-appearing female, in no acute distress. She is somewhat lethargic. HEENT: Atraumatic, normocephalic. Sclerae are clear and anicteric. NECK: Soft, supple, normal range of motion. No bruits, goiter, mass or adenopathy. There is no JVD. LUNGS: Clear to auscultation bilaterally. HEART: Regular rate and rhythm without murmurs, S3 or S4. ABDOMEN: Soft, nontender, nondistended. Positive bowel sounds. No masses felt. EXTREMITIES: Warm and well perfused without edema, cyanosis or clubbing. NEUROLOGIC: Cranial nerves 2-12 are grossly intact and symmetric. SKIN: Intact. LABORATORY DATA: Sodium 120, potassium 3.4, chloride 97, BUN 46, creatinine 2.13, glucose 1151. WBC 13.1, hemoglobin 12.4, platelets 298. pH 7.396, pCO2 of 40, pO2 of 69, bicarbonate 24.1. Urinalysis: Many bacteria, few yeast, 1000 glucose. Acetone negative. Chest x-ray -- no acute cardiopulmonary disease. ASSESSMENT: 1. Mental status change. 2. Severe generalized weakness. 3. Diabetic ketoacidosis. 4. Diabetes mellitus type 2 with severe hyperglycemia. 5. Acute renal failure secondary to dehydration and acute tubular necrosis. 6. Urinary tract infection. 7. Hyponatremia. 8. Hypertension. 9. Dehydration. PLAN: 1. The patient is admitted to [facility] Int[facility] Care Unit for further evaluation and management. 2. Start insulin drip with Accu-Cheks q. 1 hour. 3. Aggressive IV fluid resuscitation after fluid bolus of 2 liters. Continue IV fluids, adding dextrose once blood sugar is less than 250. Add potassium once serum potassium of less than 4.5. 4. Sodium should improve with correction of anion gap and hydration. 5. Start empiric antibiotics in the form of Cipro and ceftriaxone. 6. Urine culture and blood cultures obtained. 7. We will start long-acting insulin when blood sugar less than 250. Approximately 65 minutes spent in critical care management during admission including history, physical exam, assessment of all objective data and formulation of plan of care. This was discussed with the patient in detail and documentation performed. Greater than 50% of this visit was spent in counseling and coordination of care. Hebert Montenegro MD DR: ERIC/julio JOB# [id number]
== END 2018-11-24 15:35 | disposition home or self-care (01) | DRG 637 ==
LOC: ER 11:24 → ICU 15:07 → MS 11-22 16:00 → EDPENDDISTM 11-24 15:30
PROVIDERS: ADMIT Internal Medicine; ATTEND Internal Medicine
DX: E11.10 Type 2 diabetes mellitus with ketoacidosis without coma (principal); N17.0 Acute kidney failure with tubular necrosis; E87.1 Hypo-osmolality and hyponatremia; N39.0 Urinary tract infection, site not specified; E86.0 Dehydration; I95.9 Hypotension, unspecified; I10 Essential (primary) hypertension; I25.10 Atherosclerotic heart disease of native coronary artery without angina pectoris; J06.9 Acute upper respiratory infection, unspecified; Z91.14 Patient's other noncompliance with medication regimen; Z91.19 Patient's noncompliance with other medical treatment and regimen
CPT/HCPCS: 36415; 36600; 71045; 80048; 80053; 81000; 82010; 82550; 82803; 82947; 82948; 83880; 84484; 85025; 85027; 85379; 85610; 85730; 86677; 87086; 87804; 93005; 99291; G0378; J0696; J0744; J1100; J1650; J1815; J7030; J7050; J7070; J7620; 73090-RT

== ENCOUNTER → 2020-11-17 | Outpatient (CLI) | payer OTHER ==
[~2020-11-17] MED LIST: ALLO300T PO; AMOX1TAB63 PO; ASPI-929 PO; FURO-81 PO; GABA300C10 PO; GLIM2TAB7 PO; HYDR25TA9 PO; INSU100V3 SQ; ISOS30TA73 PO; LEXISCAN IV ONE; LISI20TA21 PO; MELO15TA24 PO; METO100T7 PO; PIOG30TA27 PO; PRAV10TA2 PO
--- NOTE | 2020-11-17 13:15 | PCM.ECHO ---
APPROVED REPORT EXAM: Comprehensive 2D, Doppler, and color-flow Echocardiogram. Patient Location: OUT-PATIENT Indications Abnormal ECG Dyspnea Family history of CAD 2D Dimensions LVOT Diameter 2.31 (1.8-2.4cm) LVEF(%) 43.36 (>50%) M-Mode Dimensions RVDd 2.80 (2.1-3.2cm) Left Atrium(MM) 3.70 (2.5-4.0cm) IVSd 0.80 (0.7-1.1cm) Aortic Root 2.55 (2.2-3.7cm) LVDd 5.65 (4.0-5.6cm) Aortic Cusp Exc 1.55 (1.5-2.0cm) PWd 0.70 (0.7-1.1cm) MV EPSS 1.92 (<0.5cm) IVSs 1.35 cm FS (%) 26.25 % LVDs 4.15 (2.0-3.8cm) ESV(Teich) 77.73 ml PWs 1.30 cm LVEF(%) 50.85 (>50%) Volumes Biplane 2D LV Volumes Biplane 2D LA Volumes LVEDv A4C 141.79 mL LA ESV Index LVESv A4C 80.31 mL Aortic Valve AoV Peak Jose. 1.05 m/s AoV VTI 19.50 cm AO Peak GR. 4.65 mmHg AO Mean GR. 2.80 mmHg LVOT VTI 12.27 cm LVOT Peak Jose. 0.66 m/s JOANNA(VTI)/BSA 2.63 cm2/m2 JOANNA (VTI) 2.63 cm2 Mitral Valve MV E Velocity 0.80m/s MR Peak Gr. 7.65mmHg MV A Velocity 1.00m/s TDI Lateral E' P. V 0.07m/s Medial E' P. V 0.08m/s Pulmonary Valve PV Peak Velocity 0.55m/s PV Peak Grad. 1.20mmHg RVOT VTI 12.05cm LEFT VENTRICLE The left ventricle is normal size. The left ventricular systolic function is normal. The left ventricular ejection fraction is within the normal range. There is normal left ventricular wall thickness. There is normal LV segmental wall motion. There is no ventricular septal defect visualized. No left ventricle thrombus noted on this study. LVEF is 55-60%. RIGHT VENTRICLE The right ventricle is normal size. The right ventricular systolic function is normal. There is normal right ventricular wall thickness. ATRIA The left atrium size is normal. The right atrium size is normal. The interatrial septum is intact with no evidence for an atrial septal defect. AORTIC VALVE Aortic valve is not well visualized. There is no aortic valvular stenosis. No aortic regurgitation is present. MITRAL VALVE Mitral valve is not well visualized. There is no mitral valve stenosis. There is no mitral valve regurgitation noted. TRICUSPID VALVE Tricuspid valve is not well visualized. There is no tricuspid valve stenosis. There is no tricuspid valve regurgitation noted. PULMONIC VALVE Pulmonic valve is not well visualized. GREAT VESSELS The aortic root is normal in size. Pulmonary artery is not well visualized. Aortic arch is not well visualized. IVC is not well visualized. PERICARDIUM There is no pericardial effusion. Other Information Study Quality: Poor <Conclusion> The left ventricular systolic function is normal. LVEF is 55-60%. Electronically signed by : LAYLA FOFANA. 11/17/2020 13:14:38
--- NOTE | 2020-11-17 23:02 | STRESS ---
DATE OF SERVICE: 11/17/2020 CARDIAC STRESS TEST INDICATION: Chest pain. FINDINGS: Baseline EKG shows normal sinus rhythm with diffuse ST-T wave changes and poor R-wave progression. Stress EKG reveals normal sinus rhythm, unchanged from baseline. At the end of recovery, EKG shows normal sinus rhythm, unchanged from baseline. Baseline blood pressure is 119/61 and remained the same during stress. At the end of recovery, the blood pressure is 107/57. Baseline heart rate was 81 beats per minute and gisselle to 88 beats per minute during stress. At the end of recovery, the heart rate was 92 beats per minute. Blood pressure and heart rate were appropriate for stress. There were no significant symptoms noted during stress. There were no arrhythmias noted during stress. EKG portion of stress test is nondiagnostic due to underlying ST-T wave changes that are diffuse across all leads. Nuclear images were obtained with the rest dose of 9.14 mCi technetium 99 sestamibi and a stress dose of 29.8 mCi technetium 99 sestamibi. Nuclear images reveal homogeneous tracer distribution across all wall segments with no evidence of myocardial ischemia or infarction. TID is 1.6. There is no evidence of diaphragmatic attenuation artifact. Left ventricular ejection fraction is 83%. EDV is 64 mL, ESV is 11 mL. The left ventricle is normal in size. IMPRESSION: 1. Normal myocardial perfusion imaging with no evidence of myocardial ischemia or infarction. 2. Left ventricular ejection fraction of 83%. 3. This is a negative study. LAYLA FOFANA D.O. DR: CARLY/julio JOB# [id number]
== END | disposition home or self-care (01) ==
LOC: RAD 08:59
PROVIDERS: ATTEND Internal Medicine Interventional Cardiology
DX: I87.2 Venous insufficiency (chronic) (peripheral) (principal); R07.9 Chest pain, unspecified; R06.02 Shortness of breath; R53.83 Other fatigue; R94.31 Abnormal electrocardiogram [ECG] [EKG]; Q25.49 Other congenital malformations of aorta
CPT/HCPCS: 36415; 78452; 84439; 84443; 93017; 93306; A9500; J2785